=== PATIENT | female | born 1945 | race Caucasian/White ===

== ENCOUNTER → 2017-06-03 | Outpatient (CLI) | payer MEDICARE ==
[~2017-06-03] MED LIST: HYDR12.570 PO
--- NOTE | 2017-06-03 14:54 | Diagnostic Imaging Report ---
INDICATION: Bronchitis for 2 weeks. Productive cough with shortness of breath. COMPARISON: 09/21/2014. FINDINGS: PA and lateral views of the chest show the lungs to be well-aerated. There are no infiltrates. There are no masses. The heart is not enlarged. There is no hilar adenopathy. No pneumothorax or pleural effusions. No bony abnormalities. IMPRESSION: Normal PA and lateral chest. Dictated by: Dictated on workstation # [id number]
== END ==
LOC: RAD 14:31
PROVIDERS: ATTEND Family Medicine
DX: J40 Bronchitis, not specified as acute or chronic (principal)
CPT/HCPCS: 71020

== ENCOUNTER → 2017-11-11 | Outpatient (CLI) | payer MEDICARE ==
--- NOTE | 2017-11-11 14:42 | Diagnostic Imaging Report ---
CLINICAL INDICATION: Patient with sinus infection. No surgeries or history of cancer. EXAM: Axial maxillofacial CT scan performed without IV contrast with coronal reformations. COMPARISON: None. FINDINGS: PARANASAL SINUSES: FRONTAL: Unremarkable. ETHMOID: Unremarkable. MAXILLARY: There is mild mucosal thickening involving right maxillary sinus. SPHENOID: There is minimal mucosal thickening involving the sphenoid sinus. OTHER PARANASAL SINUS FINDINGS: None. NASAL SEPTUM: There is 4 mm leftward nasal septal deviation. VISUALIZED TEMPORAL BONE STRUCTURES: Unremarkable. BONY STRUCTURES: Unremarkable. EXTRACRANIAL SOFT TISSUE/ ORBITS: Unremarkable. IMPRESSION: 1: There is mild paranasal sinus disease involving right maxillary sinus and sphenoid sinus. 2: There is mild leftward nasal septal deviation. Dictated by: Dictated on workstation # [id number]
== END ==
LOC: RAD 14:18
PROVIDERS: ATTEND Nurse Practitioner Family
DX: J32.0 Chronic maxillary sinusitis (principal); J32.3 Chronic sphenoidal sinusitis; J32.8 Other chronic sinusitis; J34.2 Deviated nasal septum
CPT/HCPCS: 70486

== ENCOUNTER → 2017-12-27 | Outpatient (CLI) | payer MEDICARE ==
--- NOTE | 2017-12-27 08:58 | Diagnostic Imaging Report ---
PROCEDURE: MR imaging of the brain without contrast. TECHNIQUE: Multiplanar, multisequence MR imaging of the brain was performed without contrast. DATE: December 27, 2017. COMPARISON: None. HISTORY: 72-year-old female, headaches and neck pain since July 2017. FINDINGS: There is no restricted diffusion. There are no areas of abnormal intracranial susceptibility. The ventricles and CSF spaces are normal in size and configuration for patient age. There is no abnormal extra axial fluid collection. There is no acute intracranial hemorrhage. There is no mass effect or midline shift. There is preservation of normal intracranial flow voids. There are T2 and FLAIR hyperintense foci of signal in the bilateral periventricular white matter which most likely reflect mild changes of chronic small vessel ischemic disease. There is normal aeration of the visualized paranasal sinuses and mastoid air cells. IMPRESSION: 1. No identified acute intracranial abnormality. 2. Mild changes of chronic small vessel ischemic disease. Dictated by: Dictated on workstation # [id number]
--- NOTE | 2017-12-27 09:12 | Diagnostic Imaging Report ---
CLINICAL INDICATION: Patient has been headaches and neck pain since July of 2017. No known injury. EXAM: MRI of the cervical spine performed without IV contrast. Sequences include sagittal T1, sagittal T2, sagittal T2 fat-sat, and axial T2. COMPARISON: None. FINDINGS: There is motion artifact which limits portions of the cervical spine. Cervical spine has normal alignment with no fracture or dislocation. There is normal craniocervical and anterior atlanto-odontoid alignment. Cervical spinal cord has normal anatomic appearance with no abnormal cord signal. Limited visualization of the posterior fossa is unremarkable. There is no paraspinal soft tissue abnormality. There is a 13 mm nodule or multinodular area in the right thyroid gland. There is a smaller nodular area in the left thyroid gland. There is mild prominence of the intra-glandular and visualized extra-glandular bilateral submandibular gland ducts which is nonspecific. There are anterior disc spurs seen involving the mid to lower cervical spine region. C1-C2: Unremarkable. C2-C3: Unremarkable. C3-C4: Unremarkable. C4-C5: There is a minimal sized posterior disc bulge. There is no significant central spinal canal or neural foramen narrowing. C5-C6: There is a diffuse disc bulge with moderate loss of intervertebral disc height and mild facet arthropathy. There is mild central canal narrowing. There is no significant neural foramen narrowing. C6-C7: There is a diffuse disc bulge moderate loss of vertebral disc height. There is zipt-ry-nldkqebm left neural foramen narrowing and mild central canal narrowing. There is no significant right neural foramen narrowing. C7-T1: Unremarkable. IMPRESSION: 1: There is sndr-uz-dnhemgcr cervical spine degenerative disc disease which is most pronounced at the C5-C6 and C6-C7 levels due to diffuse disc bulges. There is no major central canal narrowing. There is gxmn-lc-pageqffw left C6-C7 neural foramen narrowing. 2: Multinodular thyroid gland. Thyroid ultrasound is suggested for further evaluation. 3: Nonspecific prominence of the intraglandular and extraglandular bilateral submandibular gland ducts. Dictated by: Dictated on workstation # [id number]
== END ==
LOC: RAD 07:27
PROVIDERS: ATTEND Psychiatry & Neurology Neurology
DX: M48.02 Spinal stenosis, cervical region (principal); M99.71 Connective tissue and disc stenosis of intervertebral foramina of cervical region; M50.322 Other cervical disc degeneration at C5-C6 level; M50.222 Other cervical disc displacement at C5-C6 level; I67.82 Cerebral ischemia; E04.2 Nontoxic multinodular goiter
CPT/HCPCS: 70551; 72141

== ENCOUNTER → 2017-12-27 | Outpatient (CLI) | payer MEDICARE ==
--- NOTE | 2017-12-27 09:19 | Diagnostic Imaging Report ---
INDICATION: Shortness of breath. FINDINGS: The lungs are clear. The heart and vessels are normal. No effusion or pneumothorax. IMPRESSION: No acute appearing abnormality. Dictated by: Dictated on workstation # [id number]
== END ==
LOC: RAD 07:30
PROVIDERS: ATTEND Family Medicine
DX: D86.9 Sarcoidosis, unspecified (principal)
CPT/HCPCS: 71046

== ENCOUNTER → 2017-12-30 | Outpatient (CLI) | payer MEDICARE ==
--- NOTE | 2017-12-30 09:35 | Diagnostic Imaging Report ---
PROCEDURE: US Thyroid. TECHNIQUE: Multiple real-time grayscale images were obtained of the thyroid in various projections. INDICATION: Enlarged lymph nodes and bilateral neck pain. Patient also had thyroid nodules noted on recent MRI of the cervical spine. FINDINGS: Right lobe of the thyroid measures 5.6 x 1.6 x 1.9 cm and the left lobe measures 5.2 x 1.8 x 1.5 cm. Numerous bilateral thyroid nodules are present. Several nodules appear to be cystic and likely colloid cysts. These all are less than 1 cm in size. Largest nodule is on the right and appears to be solid in the lower pole. This measures 11 mm x 7 mm x 11 mm. No dominant thyroid mass is seen. Areas of pain were evaluated in both necks. No solid or cystic masses are seen. IMPRESSION: Bilateral thyroid nodules. No dominant thyroid nodules detected. Followup in 6 months could be performed to confirm stability. Study is otherwise unremarkable. Dictated by: Dictated on workstation # [id number]
== END ==
LOC: RAD 08:12
PROVIDERS: ATTEND Nurse Practitioner Family
DX: E04.2 Nontoxic multinodular goiter (principal); R59.0 Localized enlarged lymph nodes; M54.5 Low back pain
CPT/HCPCS: 76536

== ENCOUNTER → 2018-09-14 | Outpatient (CLI) | payer MEDICARE ==
--- NOTE | 2018-09-14 10:20 | Diagnostic Imaging Report ---
PROCEDURE: US Hepatic (Liver). TECHNIQUE: Multiple real-time grayscale images were obtained over the right upper quadrant in various projections. INDICATION: Elevated liver enzymes. FINDINGS: Liver is normal in size at 16.4 cm. No discrete liver mass is identified. The portal vein is patent and shows normal direction of flow. Gallbladder is surgically absent. No biliary ductal dilatation is seen. Visualized pancreas is unremarkable. Right kidney is somewhat small at 8 cm x 4.1 cm. No calculi or hydronephrosis is seen. There is no ascites. IMPRESSION: Essentially unremarkable hepatic ultrasound. Dictated by: Dictated on workstation # [id number]
--- NOTE | 2018-09-14 10:51 | Diagnostic Imaging Report ---
PROCEDURE: US Thyroid. TECHNIQUE: Multiple real-time grayscale images were obtained of the thyroid in various projections. INDICATION: Thyroid nodules. COMPARISON: Correlation is made with prior thyroid ultrasound from 12/30/2017. FINDINGS: Right lobe of the thyroid measures 5.0 x 1.9 x 1.5 cm and the left lobe measures 5.4 x 1.6 x 1.5 cm. Bilateral thyroid nodules are again noted. The largest nodule on the left is mixed solid and cystic nodule in the lower pole measuring approximately 9 mm x 4 mm x 6 mm. This is similar to prior exam. Largest nodule on the right is in the lower pole measuring 1.3 x 0.7 x 1.1 cm, minimally larger when compared with prior study of 1.1 x 0.7 x 1.1 cm. No microcalcifications are seen. IMPRESSION: Bilateral thyroid nodules. Solid nodule in the lower pole of the right lobe is minimally larger when compared with study from 12/30/2017. Continued close followup is recommended to confirm stability. Repeat study in six months is recommended. Dictated by: Dictated on workstation # [id number]
== END ==
LOC: RAD 08:00
PROVIDERS: ATTEND Family Medicine
DX: E04.2 Nontoxic multinodular goiter (principal); R94.5 Abnormal results of liver function studies; Z90.49 Acquired absence of other specified parts of digestive tract
CPT/HCPCS: 76536; 76705

== ENCOUNTER → 2019-02-26 | Outpatient (CLI) | payer MEDICARE ==
--- NOTE | 2019-02-26 09:42 | Diagnostic Imaging Report ---
CLINICAL INDICATION: Patient with thyroid nodules. COMPARISONS: Ultrasound of the thyroid gland dated 09/14/2018. FINDINGS: THYROID NODULES: There is a 1.4 cm x 1.1 cm x 0.6 cm hypoechoic nodule medial mid to lower portion right thyroid gland which is not significantly changed in size. There is central Doppler flow associated with this nodule. There is a 3 mm x 3 mm x 2 mm hypoechoic nodule involving the mid to upper portion of the right thyroid gland which is not significantly changed. There is a 4 mm x 3 mm x 2 mm hypoechoic nodule involving the upper portion of the left thyroid gland which is not seen on the prior study. There is a 6 mm x 4 mm x 3 mm heterogeneous iso-/hypoechoic nodule that is septated and located in the inferior pole of the left thyroid gland. The previously seen nodule in this area measured 0.9 cm x 0.4 cm x 0.6 cm and appear more as a solid and cystic complex nodule. It is suspected that this nodule has decreased in size. THYROID GLAND: Besides the thyroid nodules, the thyroid gland has normal size, shape and echogenicity. The right lobe measures 5.0 cm x 1.6 cm x 1.7 cm and the left lobe measures 4.9 cm x 1.4 cm x 1.2 cm in their three dimensions. ISTHMUS: The isthmus is unremarkable and measures 4 mm in thickness. IMPRESSION: 1: There is a 4 mm hypoechoic nodule involving the upper portion of thyroid gland which is not seen on the prior study. 2: Interval decreased size of the now 6 mm heterogeneous nodule involving the inferior pole of the left thyroid gland. This nodule previously measured 9 mm in greatest dimension 3: The right thyroid gland nodule is not significantly changed in size. Dictated by: Dictated on workstation # [id number]
== END ==
LOC: RAD 07:49
PROVIDERS: ATTEND Nurse Practitioner Family
DX: E04.2 Nontoxic multinodular goiter (principal)
CPT/HCPCS: 76536

== ENCOUNTER 2019-04-11 15:59 | Outpatient (CLI) | payer MEDICARE ==
[~2019-04-11] VITALS: Ht 162.6 cm; Wt 70.5 kg
[2019-04-11] MEDS ORDERED: HYDR12.56 PO (16:01)
[2019-04-11] MEDS ORDERED: TELM80TA8 PO (16:01)
== END 2019-04-11 16:06 | disposition home or self-care (01) ==
LOC: PREOP 15:59
PROVIDERS: ATTEND Specialist
DX: Z01.818 Encounter for other preprocedural examination (principal)

== ENCOUNTER 2019-05-04 06:51 | Day surgery (SDC) | payer MEDICARE ==
[~2019-05-04] VITALS: Ht 162.6 cm; Wt 70.5 kg
[~2019-05-04 06:51] MED LIST changes: +HYDR12.56 PO; +TELM80TA8 PO; +acetaZOLAMIDE ER 500 MG CAP (DIAMOX SEQUELS) PO ONE
[2019-05-04 06:55] VITALS: BP 143/71
[2019-05-04] MEDS ORDERED: TIMOLOL MALEATE 0.5% 5 ML (TIMOPTIC) BTL OU PRN (07:00)
[2019-05-04] MEDS ORDERED: POVIDONE (BETADINE) OPHTH SOLN 5% 30 ML OP ONE (07:00)
[2019-05-04] MEDS ORDERED: MOXIFLOXACIN OPHTH SOLN 5 MG/ML 0.3 ML SYRINGE OP ONE (07:00)
[2019-05-04] MEDS ORDERED: LIDOCAINE PF 1% 2 ML AMP IR PRN (07:00)
[2019-05-04] MEDS: TETRACAINE 0.5% OPHTH SOLN 4 ML BTL (SINGLE DOSE ONLY) OU PRN ×4 (07:08→07:37)
[2019-05-04] MEDS: CYCLOPENTOLATE 1% (CYCLOGYL) 2 ML DROPS OP SCH ×3 (07:21→07:37)
[2019-05-04] MEDS: PHENYLEPHRINE 10% OPHTH (NEO-SYN) 5 ML BTL OU SCH ×3 (07:21→07:37)
--- NOTE | 2019-05-04 08:26 | Ophthalmologist Pre-Op Note ---
Pre-Operative Progress Note H&P Reviewed The H&P was reviewed, patient examined and no changes noted. Date H&P Reviewed: May 04, 2019 Time H&P Reviewed: 08:26 Pre-Op Dx Cataract, Left Eye RAJENDRA JIMENEZ MD May 04, 2019 08:26 POS
[2019-05-04] MEDS ORDERED: MIDAZOLAM 2 MG/2 ML (VERSED) VIAL ONE (08:32)
--- NOTE | 2019-05-04 08:44 | Ophthalmology Operative Report ---
Cataract removal/placement IOL PREOPERATIVE DIAGNOSIS: Cataract Left Eye POSTOPERATIVE DIAGNOSIS: Cataract Left Eye PROCEDURE: Cataract removal and placement of posterior chamber implant, left eye SURGEON: John Jimenez ANESTHESIA: Topical with sedation COMPLICATIONS: None ESTIMATED BLOOD LOSS: Minimal DESCRIPTION OF PROCEDURE: After proper informed consent was obtained, the patient, a 73 female, was taken to the Operating Room and the left eye was anesthetized with tetracaine. The left eye was then prepped and draped in the usual manner. A wire lid speculum was placed. A paracentesis was made at the left hand position. Preservative free lidocaine was injected into the anterior chamber followed by viscoelastic. A clear corneal incision was made in the temporal position. A capsulorrhexis was preformed and the central nuclear and cortical material were removed. The posterior capsule was polished and an Milan 21.5 AU00T0 was placed into the capsular bag. The residual viscoelastic was aspirated and balanced saline solution was injected into the anterior chamber. Moxifloxacin was injected into the anterior chamber. The wound was checked and found to be water tight. The patient tolerated the procedure well without complications. JOHN JIMENEZ MD May 04, 2019 08:44 POS
[2019-05-04 08:55] VITALS: BP 133/73
--- NOTE | 2019-05-04 13:18 | Anesthesia-General Post-Op ---
MAC Patient Condition Mental Status/LOC: Same as Preop Cardiovascular: Satisfactory Nausea/Vomiting: Absent Respiratory: Satisfactory Pain: Controlled Complications: Absent Post Op Complications Complications None Follow Up Care/Instructions Patient Instructions None needed. Anesthesiology Discharge Order Discharge Order Patient is doing well, no complaints, stable vital signs, no apparent adverse anesthesia problems. No complications reported per nursing. RENÉE ORNELAS CRNA May 04, 2019 13:18 POS
== END 2019-05-04 08:55 ==
LOC: SDC 06:51
PROVIDERS: ATTEND Specialist
DX: H25.12 Age-related nuclear cataract, left eye (principal); E78.00 Pure hypercholesterolemia, unspecified; I10 Essential (primary) hypertension; Z88.0 Allergy status to penicillin; Z90.710 Acquired absence of both cervix and uterus; Z90.49 Acquired absence of other specified parts of digestive tract; Z79.899 Other long term (current) drug therapy; Z83.3 Family history of diabetes mellitus; Z83.518 Family history of other specified eye disorder

== ENCOUNTER 2019-05-23 05:38 | Outpatient (CLI) | payer MEDICARE ==
[~2019-05-23 05:38] MED LIST changes: -acetaZOLAMIDE ER 500 MG CAP (DIAMOX SEQUELS) PO ONE
== END 2019-05-23 13:13 | disposition home or self-care (01) ==
LOC: PREOP 05:38
PROVIDERS: ATTEND Specialist
DX: Z01.818 Encounter for other preprocedural examination (principal)

== ENCOUNTER 2019-05-25 07:29 | Day surgery (SDC) | payer MEDICARE ==
[~2019-05-25] VITALS: Ht 163 cm; Wt 70.5 kg
[2019-05-25 07:45] VITALS: BP 149/75
[2019-05-25] MEDS ORDERED: MOXIFLOXACIN OPHTH SOLN 5 MG/ML 0.3 ML SYRINGE OP ONE (08:00)
[2019-05-25] MEDS ORDERED: POVIDONE (BETADINE) OPHTH SOLN 5% 30 ML OP ONE (08:00)
[2019-05-25] MEDS ORDERED: LIDOCAINE PF 1% 2 ML AMP IR PRN (08:00)
[2019-05-25] MEDS ORDERED: TIMOLOL MALEATE 0.5% 5 ML (TIMOPTIC) BTL OU PRN (08:00)
[2019-05-25] MEDS: TETRACAINE 0.5% OPHTH SOLN 4 ML BTL (SINGLE DOSE ONLY) OU PRN ×4 (08:01→08:32)
[2019-05-25] MEDS: CYCLOPENTOLATE 1% (CYCLOGYL) 2 ML DROPS OP SCH ×3 (08:14→08:32)
[2019-05-25] MEDS: PHENYLEPHRINE 10% OPHTH (NEO-SYN) 5 ML BTL OU SCH ×3 (08:14→08:32)
--- NOTE | 2019-05-25 08:39 | Ophthalmologist Pre-Op Note ---
Pre-Operative Progress Note H&P Reviewed The H&P was reviewed, patient examined and no changes noted. Date H&P Reviewed: May 25, 2019 Time H&P Reviewed: 08:39 Pre-Op Dx Cataract, Right Eye RAJENDRA JIMENEZ MD May 25, 2019 08:39 POS
[2019-05-25] MEDS ORDERED: MIDAZOLAM 2 MG/2 ML (VERSED) VIAL ONE (08:41)
--- NOTE | 2019-05-25 09:01 | Ophthalmology Operative Report ---
Cataract removal/placement IOL PREOPERATIVE DIAGNOSIS: Cataract Right Eye POSTOPERATIVE DIAGNOSIS: Cataract Right Eye PROCEDURE: Cataract removal and placement of posterior chamber implant, right eye SURGEON: John Jimenez ANESTHESIA: Topical with sedation COMPLICATIONS: None ESTIMATED BLOOD LOSS: Minimal DESCRIPTION OF PROCEDURE: After proper informed consent was obtained, the patient, a 73 female, was taken to the Operating Room and the right eye was anesthetized with tetracaine. The right eye was then prepped and draped in the usual manner. A wire lid speculum was placed. A paracentesis was made at the left hand position. Preservative free lidocaine was injected into the anterior chamber followed by viscoelastic. A clear corneal incision was made in the temporal position. A capsulorrhexis was preformed and the central nuclear and cortical material were removed. The posterior capsule was polished and Milan 22.0 AU00T0 IOL was placed into the capsular bag. The residual viscoelastic was aspirated and balanced saline solution was injected into the anterior chamber. Moxifloxacin was injected into the anterior chamber. The wound was checked and found to be water tight. The patient tolerated the procedure well without complications. JOHN JIMENEZ MD May 25, 2019 09:01 POS
[2019-05-25 09:10] VITALS: BP 140/77
[2019-05-25] MEDS ORDERED: acetaZOLAMIDE ER 500 MG CAP (DIAMOX SEQUELS) PO ONE (10:00)
--- NOTE | 2019-05-25 11:46 | Anesthesia-General Post-Op ---
MAC Patient Condition Mental Status/LOC: Same as Preop Cardiovascular: Satisfactory Nausea/Vomiting: Absent Respiratory: Satisfactory Pain: Controlled Complications: Absent Post Op Complications Complications None Follow Up Care/Instructions Patient Instructions None needed. Anesthesiology Discharge Order Discharge Order Patient is doing well, no complaints, stable vital signs, no apparent adverse anesthesia problems. No complications reported per nursing. MICHAEL PACHECO CRNA May 25, 2019 11:46 POS
--- OUTSIDE RECORDS SUMMARY | 2019-06-20 08:53 | XMS REPORT | Encounter Summary ---
Author Author [facility] Organization [facility] Address Unknown Phone Unavailable Care Team Providers Care Strategic Account Director Name Role Phone Tatyana Grimm PCP Encounter Details Care Team Description Date Type Department Encounter for consultation 07/04/[address] [facility] e Appointment Location Social History Date Tobacco Use Types Packs/Day Years Used Never Assessed Sex Assigned at Date Recorded Not on file Industry Job Start Date Occupation Not on file Not on file Not on file Travel End Travel History Travel Start No recent travel history available. documented as of this encounter Plan of Treatment Not on filedocumented as of this encounter Procedures Comments Procedure Name Priority Date/Time Associated Diag rosalio PARHAM OUTSIDE IMAGES FOR Routine 07/04/2017 Encounte r for PACS 10:57 AM AWNINGS MECHANIC consultation documented in this encounter Results * PRASAD Outside images for PACS (07/04/2017 10:57 AM AWNINGS MECHANIC) Specimen Narrative Performed At This result has an attachment that is n ot available. Performing Organization Address [facility]ul [facility] documented in this encounter Visit Diagnoses Diagnosis Encounter for consultation documented in this encounter
--- OUTSIDE RECORDS SUMMARY | 2019-06-20 08:53 | XMS REPORT | Encounter Summary ---
Author Author [facility] Organization [facility] Address Unknown Phone Unavailable Care Team Providers Care Supervisor [employer]ing Name Role Phone Tatyana Grimm PCP Encounter Details Care Team Description Date Type Department Encounter for consultation 07/01/[address] [facility] Virtual [facility] e Appointment Location Social History Date Tobacco [...] Comments Procedure Name Priority Date/Time Associated Diag nosis US OUTSIDE IMAGES FOR Routine 07/01/2017 Encounte r for PACS 10:15 AM SHIP BOSS consultation documented in this encounter Results * US Outside images for PACS (07/01/2017 10:15 AM SHIP BOSS) Specimen Narrative Performed At This result has an attachment that is n ot available. Performing Organization Address [facility] documented in this encounter Visit Diagnoses Diagnosis Encounter for consultation documented in this encounter
--- OUTSIDE RECORDS SUMMARY | 2019-06-20 08:53 | XMS REPORT | Encounter Summary ---
Author Author [facility] Organization [facility] Address Unknown Phone Unavailable Care Team Providers Care Rehab Assistant Name Role Phone Tatyana Grimm PCP Reason for Visit * MRI/CAT/PET Scan (Routine) Referred By Contact Referred To Contact Status Reason Specialty Diagnoses / Procedures No, Ordering D, DO [facility] [address] [place] [id number] Closed Cardiology Diagnoses High cholesterol Screening for cardiovascular condition P rocedures CV CT Cardioscan Encounter Details Care Team Description Date Type Department High cholesterol; Screening for cardiovascular condition 02/15/2018 Imaging [facility] o[facility] Appointment [address] [facility] [address] [place] [address] Social History Date Tobacco Use Types Packs/Day Years Used Never Assessed Sex Assigned at Date Recorded Not on file Industry Job Start Date Occupation Not on file Not on file Not on file Travel End Travel History Travel Start No recent travel history available. documented as of this encounter Progress Notes * Lexus López - 02/15/2018 1:45 PM CDT The final cardioscan report was routed to the patient's PCP, Dr. Grimm. Lexus López Cardioscan Patient Educator * Robbie Ding - 02/15/2018 1:45 PM CDT Patient was counseled today regarding their Cardioscan results. Patient had NO c alcification with a score of 0, putting the patient at a LOW risk for subsequent cardiac events compared to the average person of similar age and gender. Risk f actor modification was discussed. Repeat in 5 years. Robbie Ding Cardioscan patient educator documented in this encounter Plan of Treatment Not on filedocumented as of this encounter Procedures Comments Procedure Name Priority Date/Time Associated Diag nosis CV CT CARDIOSCAN Routine 02/15/2018 High choleste rol 1:55 PM CDT Screening for cardiovascular condition documented in this encounter Results * CV CT Cardioscan (02/15/2018 1:55 PM CDT) Calcium Score 0.0 [facility] Specimen Narrative Performed At [facility] NAME: TIESHA BRASWELL : [id number] GENDER: f MRN: CHARBEL NUM: [id number] TEST: Coronary Calcium Score TEST DATE: TEST LOCATION: [place] INPATIENT: INDICATION FOR TEST: Hypertension, Hy perlipidemia SYMPTOMS: None PROTOCOL: High-resolution, ECG-synchr onized Computed Tomography (CT) of the heart and coronary arteries was perform ed using a Multi-Detector Computed Tomography (MDCT). Each slice acquire d was 3 mm thick using a 3 mm slice to slice step. The average heart rate of the patient was 80 bpm an d varied over a range of 0 bpm. There were no image artifacts.. REPORT: Based on the size and density of the calcium deposits in each artery, a calcium score was computed using Perficient volumetric cardiac scoring software. Such deposits are markers for underly ing coronary atherosclerosis. The coronary artery calcium score enables a person to emmy re his or her level of coronary calcification to levels found in health y individuals of the same age and gender. The score is an indicator of the like lihood for significant coronary artery obstruction and the risk of a subsequent cardiac event. Coronary Artery: Left Main, # of Lesion s: 0, Volume Score: 0, Mass Score: 0, Agatston Score: 0 Coronary Artery: LAD, # of Lesions: 0, Volume Score: 0, Mass Score: 0, Agatston Score: 0 Coronary Artery: LCX, # of Lesions: 0, Volume Score: 0, Mass Score: 0, Agatston Score: 0 Coronary Artery: RCA, # of Lesions: 0, Volume Score: 0, Mass Score: 0, Agatston Score: 0 Coronary Artery: Total, # of Lesions: 0 , Volume Score: 0, Mass Score: 0, Agatston Score: 0. The Agatston score indicates No Identif iable Calcification. The total Agatston score of 0 bridget PINO BRASWELL within the Low Risk Category for females, of similar age. (Note: the d atabase only contains persons between the ages of 30 and 79.) OTHER COMMENTS: This is a limited CT scan of the chest for evaluation of coronary artery calcification only and is not intended for any other purpose. Please refer to the attached recommen dations provided to you at the time of your Cardioscan study for further information. Trey Escalante MD [address] [address], [address] [place] [address] PROVIDER APPROVAL DATETIME: 2018-01-20 0 13:43:29.0 Procedure Note Interface, External Ris In - 02/16/2018 2:14 PM CDT NAME: TIESHA BRASWELL : [id number] GENDER: f MRN: CHARBEL NUM: [id number] TEST: Coronary Calcium Score TEST DATE: TEST LOCATION: [place] INPATIENT: INDICATION FOR TEST: Hypertension, Hyperlipidemia SYMPTOMS: None PROTOCOL: High-resolution, ECG-synchronized Computed Tomography (CT) of the heart and coronary arteries was performed using a Multi-Detector Computed Tomography (MDCT). Each slice acquired was 3 mm thick using a 3 mm slice to slice step. The average heart rate of the patient was 80 bpm and varied over a range of 0 bpm. There were no image artifacts.. REPORT: Based on the size and density of the calcium deposits in each artery, a calcium score was computed using Siemens volumetric cardiac scoring software. Such deposits are markers for underlying coronary atherosclerosis. The coronary artery calcium score enables a person to compare his or her level of coronary calcification to levels found in healthy individuals of the same age and gender. The score is an indicator of the likelihood for significant coronary artery obstruction and the risk of a subsequent cardiac event. Coronary Artery: Left Main, # of Lesions: 0, Volume Score: 0, Mass Score: 0, Agatston Score: 0 Coronary Artery: LAD, # of Lesions: 0, Volume Score: 0, Mass Score: 0, Agatston Score: 0 Coronary Artery: LCX, # of Lesions: 0, Volume Score: 0, Mass Score: 0, Agatston Score: 0 Coronary Artery: RCA, # of Lesions: 0, Volume Score: 0, Mass Score: 0, Agatston Score: 0 Coronary Artery: Total, # of Lesions: 0, Volume Score: 0, Mass Score: 0, Agatston Score: 0. The Agatston score indicates No Identifiable Calcification. The total Agatston score of 0 ranks TIESHA BRASWELL within the Low Risk Category for females, of similar age. (Note: the database only contains persons between the ages of 30 and 79.) OTHER COMMENTS: This is a limited CT scan of the chest for evaluation of coronary artery calcification only and is not intended for any other purpose. Please refer to the attached recommendations provided to you at the time of your Cardioscan study for further information. Trey Escalante MD [address], [address] [place] [address] PROVIDER APPROVAL DATETIME: 2018-02-16 13:43:29.0 Performing Organization Address City/State/Zipcode Ph one Number [facility] documented in this encounter Visit Diagnoses Diagnosis High cholesterol Pure hypercholesterolemia Screening for cardiovascular condition Screening for other and unspecified car diovascular conditions documented in this encounter
--- OUTSIDE RECORDS SUMMARY | 2019-06-20 08:53 | XMS REPORT | Encounter Summary ---
Author Author [facility] Organization [facility] Address Unknown Phone Unavailable Care Team Providers Care Auto Glass Technician Name Role Phone Tatyana Grimm PCP Encounter Details Care Team Description Date Type Department Encounter for consultation 07/04/2017 Imaging [facility] Virtual [facility] e Appointment Location Social History Date [...] 07/04/2017 Encounte r for PACS 10:57 AM WEB APPLICATIONS ADMINISTRATOR consultation documented in this encounter Results * PRASAD Outside images for PACS (07/04/2017 10:57 AM WEB APPLICATIONS ADMINISTRATOR) Specimen Narrative Performed At This result has an attachment that is n ot available. Performing Organization Address [facility] Mehul [facility] documented in this encounter Visit Diagnoses Diagnosis Encounter for consultation documented in this encounter
--- OUTSIDE RECORDS SUMMARY | 2019-06-20 08:53 | XMS REPORT | Encounter Summary ---
Author Author [facility] Organization [facility] Address Unknown Phone Unavailable Care Team Providers Care Web Content Editor Name Role Phone Tatyana Grimm PCP Encounter Details Care Team Description Date Type Department Encounter for consultation 07/04/[address] [facility] Appointment Location Social History Date [...] FOR Routine 07/04/2017 Encounte r for PACS 10:55 AM BUSINESS ACCOUNT EXECUTIVE consultation documented in this encounter Results * PRASAD Outside images for PACS (07/04/2017 10:55 AM BUSINESS ACCOUNT EXECUTIVE) Specimen Narrative Performed At This result has an attachment that is n ot available. Performing Organization Address [facility] Mehul [facility] documented in this encounter Visit Diagnoses Diagnosis Encounter for consultation documented in this encounter
--- OUTSIDE RECORDS SUMMARY | 2019-06-20 08:53 | XMS REPORT | Encounter Summary ---
Author Author [facility] Address Unknown Phone Unavailable Care Team Providers Care Frame Stylist Name Role Phone Tatyana Grimm PCP Reason for Referral * Diagnostic Imaging (Routine) Referred By Contact Referred To Contact Status Reason Specialty Diagnoses / Procedures Tatyana Grimm MD [address] [place] [id number] Closed Diagnoses Mastodynia P rocedures MA Mammogram diagnostic w CAD kiera bilat MA Mammogram diagnostic bilat Reason for Visit * Diagnostic Imaging (Routine) Referred By Contact Referred To Contact Status Reason Specialty Diagnoses / [place] [address] [place] [id number] Closed Diagnoses Mastodynia P rocedures MA Mammogram diagnostic w CAD kiera bilat MA Mammogram diagnostic bilat Encounter Details Care Team Description Date [place] [address] [place] [id number] Mastodynia 07/07/2017 [facility] Breast [address], [address] [place] [address] Social History Date Tobacco Use Types Packs/Day Years Used Never Assessed Sex Assigned at Date Recorded Not on file Industry Job Start Date Occupation Not on file Not on file Not on file Travel End Travel History Travel Start No recent travel history available. documented as of this encounter Medications at Time of Discharge Start Date End Date Medication Sig Dispensed Refills 06/25/2017 cycloSPORINE (RESTASIS) Administer 1 0 0.05 % ophthalmic Drop in both emulsion eyes daily. 06/30/2015 02/27/2018 ACYCLOVIR ORAL Take 1 0 capsule by mouth. 02/25/2012 02/27/2018 ascorbic acid (VITAMIN C) Take 1 tablet 0 500 mg tablet by mouth 2 (two) times a day. 01/03/2017 02/27/2018 busPIRone (BUSPAR) 5 MG Take 5 mg by 0 tablet mouth daily. 02/25/2012 02/27/2018 co-enzyme Q-10 50 mg Take 1 0 capsule capsule by mouth. 06/30/2015 02/27/2018 fexofenadine (THANH) 60 Take by 0 MG tablet mouth. 02/28/2012 02/27/2018 levalbuterol (XOPENEX Inhale 1 0 HFA) 45 mcg/actuation Inhaler. inhaler 06/30/2015 02/27/2018 lisinopril Take 1 tablet 0 (PRINIVIL,ZESTRIL) 20 MG by mouth. tablet 02/25/2012 02/27/2018 LYSINE ORAL Take 1 0 capsule by mouth. 01/14/2014 02/27/2018 MAGNESIUM CITRATE ORAL Take 2 0 tablets by mouth. 02/28/2012 02/27/2018 omega-3 fatty acids/fish Take 1 0 oil (OMEGA 3 FISH OIL capsule by ORAL) mouth. 02/25/2012 02/27/2018 potassium 99 mg Tab Take 1 tablet 0 by mouth. documented as of this encounter Plan of Treatment Not on filedocumented as of this encounter Procedures Comments Procedure Name Priority Date/Time Associated Diag nosis MA MAMMOGRAM DIAGNOSTIC W Routine 07/07/2017 Mast odynia CAD KIERA BILAT 11:01 AM TRACK LAYING MACHINE OPERATOR documented in this encounter Results * MA Mammogram diagnostic w CAD kiera bilat (07/07/2017 11:01 AM TRACK LAYING MACHINE OPERATOR) Specimen Impressions Performed At [facility] There is no mammographic or sonographic evidence of malignancy at the location of clinical concern. However, negative imaging does not eliminate the need for further clinical evaluation and/or follow up. Continued clinical follow up is recommended as the management of palpable abnormalities should be based on the results of clinical evaluation. The results and recommendation of this exam have been discussed with the patient. Routine mammogram in 1 year is recommen ded. Patient will receive a reminder letter. The results and recommendation of this exam have been discussed with the patient in person. BI-RADS CATEGORY 2: Benign Finding(s) READING SITE: [facility] gunner [place] Electronically Signed: at 12:28:16 PM Your patient will receive the results o f this examination as outlined by the Mammography Quality Standards Act. Tiesha Braswell, [id number] 1945 2 Page 2li Narrative Performed At [facility] Breast Care [address], [address] [place] [address] Patient: Tiesha Braswell Date of : 1945 Referring Physician: Tatyana sidhu Exam Date: 07/07/2017 Exam [id number] Procedure Performed: MA Mammogram diagn ostic w CAD kiera bilat - bilateral , Ultrasound Breast Limited left - left REASON FOR EXAM Patient is 72 years old and is seen for lump felt by patient and focal breast pain in the left breast. The following views were obtained: bi lateral CC; bilateral MLO KIERA; bilateral MLO; bilateral CC KIERA; left XCCL; and left XCCL KIERA. IMAGE COMPARISON Prior imaging studies performed at [facility] on 11/19/2008, 03/03/2010, 03/09/2010, 01/15/2014 and 01/16/2014 w ere reviewed. DIGITAL MAMMOGRAM CAD-analysis was used in the interpreta tion of this study. The breasts are heterogeneously dense, which may obscure small masses. There is a triangle marker placed on th e skin that corresponds to the patient's palpable lump in the posterior upper ou ter quadrant of the left breast. No corresponding mammographic abnormality is seen. Of note, the marker also lies adjacent to a scar marker also present, secondary to previous excision. A post biopsy clip is seen within the lateral right breast. Otherwise, no suspicious masses, architectural distortion, or gr ouped microcalcifications are seen in either breast. ULTRASOUND Targeted ultrasound was subsequently pe rformed of the left breast at the area of clinical concern at 2 o'clock 8 cm from the nipple. Transverse and longitudinal images are obtained by the technologist . No suspicious solid or cystic mass is seen. A mound of fibroglandular tissu e is seen, which may correspond with the area of palpable concern. Procedure Note Interface, Rad Results In - 07/07/2017 12:31 PM [facility] [address], [address] [place] [address] Patient: Tiesha Braswell Date of : 1945 Referring Physician: Tatyana Grimm Exam Date: 07/07/2017 Exam [id number] Procedure Performed: MA Mammogram diagnostic w CAD kiera bilat - bilateral , Ultrasound Breast Limited left - left REASON FOR EXAM Patient is 72 years old and is seen for lump felt by patient and focal breast pain in the left breast. The following views were obtained: bilateral CC; bilateral MLO KIERA; bilateral MLO; bilateral CC KIERA; left XCCL; and left XCCL KIERA. IMAGE COMPARISON Prior imaging studies performed at [facility] on 11/19/2008, 03/03/2010, 03/09/2010, 01/15/2014 and 01/16/2014 we re reviewed. DIGITAL MAMMOGRAM CAD-analysis was used in the interpretation of this study. The breasts are heterogeneously dense, which may obscure small masses. There is a triangle marker placed on the skin that corresponds to the patient's palpable lump in the posterior upper outer quadrant of the left breast. No corresponding mammographic abnormality is seen. Of note, the marker also lies adjacent to a scar marker also present, secondary to previous excision. A post biopsy clip is seen within the lateral right breast. Otherwise, no suspicious masses, architectural distortion, or grouped microcalcifications are seen in either breast. ULTRASOUND Targeted ultrasound was subsequently performed of the left breast at the area of clinical concern at 2 o'clock 8 cm from the nipple. Transverse and longitudinal images are obtained by the technologist. No suspicious solid or cystic mass is seen. A mound of fibroglandular tissue is seen, which may correspond with the area of palpable concern. IMPRESSION IMPRESSION There is no mammographic or sonographic evidence of malignancy at the location of clinical concern. However, negative imaging does not eliminate the need for further clinical evaluation and/or follow up. Continued clinical follow up is recommended as the management of palpable abnormalities should be based on the results of clinical evaluation. The results and recommendation of this exam have been discussed with the patient. Routine mammogram in 1 year is recommended. Patient will receive a reminder letter. The results and recommendation of this exam have been discussed with the patient in person. BI-RADS CATEGORY 2: Benign Finding(s) READING SITE: [facility] Etta [place] Electronically Signed: 07/07/2017 at 12:28:16 PM Your patient will receive the results of this examination as outlined by the Mammography Quality Standards Act. Tiesha Braswell, [id number] 1945 2 Page 2li Performing Organization Address City/State/Zipcode Ph one Number [facility] documented in this encounter Visit Diagnoses Diagnosis Mastodynia documented in this encounter
--- OUTSIDE RECORDS SUMMARY | 2019-06-20 08:53 | XMS REPORT | Encounter Summary ---
Author Author [facility] Organization [facility] Address Unknown Phone Unavailable Care Team Providers Care Curriculum Consultant Name Role Phone Melissa Hodges PCP Reason for Referral * MRI/CAT/PET Scan (Routine) Referred By Contact Referred To Contact Status Reason Specialty Diagnoses / Procedures No, Ordering D, DO [facility] [address] [place] [address] Closed Cardiology Diagnoses High cholesterol Screening for cardiovascular condition P rocedures CV CT Cardioscan Encounter Details Care Team Description Date Type Department No, Ordering D, DO [phone] High cholesterol (Primary Dx); Screening for [facility] condition [facility] [address] [place] [address] Social History Date Tobacco Use Types Packs/Day Years Used Never Assessed Sex Assigned at Date Recorded Not on file Industry Job Start Date Occupation Not on file Not on file Not on file Travel End Travel History Travel Start No recent travel history available. documented as of this encounter Plan of Treatment Not on filedocumented as of this encounter Results * CV CT Cardioscan (02/15/2018 1:55 PM CDT) Calcium Score 0.0 [facility] Specimen Narrative Performed At [facility] NAME: TIESHA BRASWELL : [id number] GENDER: f MRN: ACCOUNT NUM: [id number] TEST: Coronary Calcium Score TEST DATE: TEST LOCATION: [place] INPATIENT: INDICATION FOR TEST: Hypertension, Hy perlipidemia [...] artery, a calcium score was computed using [employer] volumetric cardiac scoring software. Such deposits are [...] The total Agatston score of 0 ranks KASEY IS BRASWELL within the Low Risk Category for [...] study for further information. Trey Escalante MD [address], [address] [place] [address] PROVIDER APPROVAL DATETIME: 2018-01-20 0 13:43:29.0 Procedure Note Interface, External Ris In - 02/16/2018 2:14 PM CDT NAME: TIESHA BRASWELL : [id number] GENDER: f MRN: CHARBEL NUM: [id number] TEST: Coronary Calcium Score TEST DATE: TEST LOCATION: [place] INPATIENT: INDICATION FOR TEST: Hypertension, Hyperlipidemia SYMPTOMS: [...] Escalante MD [address], [address] [place] [address] PROVIDER APPROVAL DATETIME: 2018-02-16 13:43:29.0 Performing Organization Address City/State/Zipcode Ph one Number [facility] documented in this encounter Visit Diagnoses Diagnosis High cholesterol Pure hypercholesterolemia Screening for cardiovascular condition Screening for other and unspecified car diovascular conditions documented in this encounter
--- OUTSIDE RECORDS SUMMARY | 2019-06-20 08:53 | XMS REPORT | Encounter Summary ---
Author Author [facility] Organization [facility] Address Unknown Phone Unavailable Care Team Providers Care Operations Assistant Name Role Phone Melissa Hodges PCP Reason for Referral * Diagnostic Imaging (Routine) Referred By Contact Referred To Contact Status Reason Specialty Diagnoses / [place] [address] [place] [address] Closed Diagnoses Hyperlipidemia, unspecified hyperlipidemia type P rocedures Electrocardiogram (ECG) Reason for Visit * Reason Comments Hyperlipidemia Hypertension Establish Care Encounter Details Care Team Description [place] [address] [place], [place] [id number] Hyperlipidemia, unspecified hyperlipidem ia type (Primary Dx); Essential hypertension 02/27/2018 Office Visit [facility] [address] [place] [address] Social History Date Tobacco Use Types Packs/Day Years Used Never Smoker Smokeless Tobacco: Never Used Drinks/Week oz/Week Comments Alcohol Use No Sex Assigned at Date Recorded Not on file Industry Job Start Date Occupation Not on file Not on file Not on file Travel End Travel History Travel Start No recent travel history available. documented as of this encounter Last Filed Vital Signs Reading Time Taken Comments Vital Sign 150/90 02/27/2018 1:41 PM CDT Blood Pressure 79 02/27/2018 1:27 PM CDT Pulse - - Temperature - - Respiratory Rate - - Oxygen Saturation - - Inhaled Oxygen Concentration 72.8 kg (160 lb 6.4 oz) 02/27/2018 1:27 PM CDT Weight 162.6 cm (5' 4") 02/27/2018 1:27 PM CDT Height 27.53 02/27/2018 1:27 PM CDT Body Mass Index documented in this encounter Patient Instructions * Patient Instructions* Roxie Moon RN - 02/27/2018 1:15 PM CDT Your doctor has ordered the following test(s): Lab work to be done in two weeks. This is to check how you are doing on the new medication. A nurse will contact you with the results and your doctor's recommendations approximately 7-10 busine days after the test has been completed. Medication Instructions: Start taking hydrochlorthiazide 12.5mg daily. This will help to lower your blood pressure. Your blood pressure goal is consistenly lower than 130/80. Please have your recent lab work, specifically your cholesterol levels, faxed to [phone]. Follow up with MD Dr. Fred Comer in 8 weeks. Please call the Nurse Line at [phone] ([facility] Nurse Team). with any questions or concerns. For medication refill needs, please first contact your pharmacy. For any [facility] scheduling questions, please maddy mason . At [facility], high quality patient care is our top priority. To ensure our cardiovascular standards are continuously met, you may receive a survey via giuliano il or text message, and we ask that you please take the time to fill it out. We strive to ensure you are very satisfied with every visit. Thank you in advance for taking the time to fill this out. It was a pleasure to meet you. Roxie RN documented in this encounter Progress Notes * Fred Comer MD - 02/27/2018 1:15 PM CDT [facility] Appointment Date: 02/27/2018 Melissa Hodges APRN [address] [place] [id number] RE: Tiesha Braswell : 1945 Visit provider: Fred Comer MD Dear Melissa Hodges APRN, I had the pleasure of seeing Tiesha Braswell in the office today. She is a(n) 72 y.o. female and presents with the following chief complaint(s): Hyperlipidemia; Hype rtension; and Establish Care HPI: Tiesha is seen today in self-referral. I have been offered the privilege of suzy schneider in our [place] office. Tiesha carries the following cardiac issues: 1. Hypertension. 2. Hyperlipidemia (historically which has not required treatment). She denies knowledge of smoking or diabetes. While she has a family history of heart disease, it does not appear to be on a premature basis. She has been seen at the [facility] in the past for noncardiac issues. At one point, she carried a diagnosis of pulmonary sarcoidosis. Apparently, this is no t something which is active and requires treatment. Surgical history as listed includes a hysterectomy and cholecystectomy. Her medications include amlodipine 5 mg and Micardis 80 mg. A home diary was pr ovided. Traditionally, it would appear that the blood pressure is slightly elev ated overall in reference to our latest standards. From a subjective standpoint, however, Tiesha appears to be doing well. While sh elle is not involved in any formal regular exercise program, she denies issues of d yspnea, chest pain, nocturnal dyspnea, palpitations, edema, or dizziness. On exam, blood pressure was repeated at 150/90. Her examination is otherwise no rmal. Her EKG reflects a sinus mechanism with a relative delay in precordial R- wave progression. In summary, Tiesha presents to establish care. She has hypertension. There may well be a component of office hypertension, but I believe overall the trend woul d favor additional intervention. In this particular setting, I would like to try low-dose hydrochlorothiazide. S he had mentioned some issues with the sun in the past, but I think a trial of 12 .5 mg would be indicated and likely well tolerated. I would like a basic metabo lic profile in 2 weeks. We do know that from a diagnostic standpoint, a recent calcium scoring study ret urned a value of zero on 02/15/2018. Tiesha will provide all recent laboratory studies to us, specifically with her li pids. At the present time, I see no need for cardiac diagnostics. Again, we are quite pleased with the recent calcium scoring study. Tiesha has agreed to return to see us in 8 weeks and hopefully at that time, we c an have a discussion in reference to her lipid profile and potentially calculate a 10-year risk of atherosclerotic disease. Patient Active Problem List Diagnosis SNOMED CT(R) Sarcoidosis SARCOIDOSIS Otalgia of right ear OTALGIA OF RIGHT EAR Essential hypertension ESSENTIAL HYPERTENSION Mixed hyperlipidemia MIXED HYPERLIPIDEMIA GERD (gastroesophageal reflux disease) GASTROESOPHAGEAL REFLUX DISEASE Osteopenia OSTEOPENIA Thyroid nodule THYROID NODULE Cataract CATARACT Colon polyp POLYP OF COLON Past Medical History: Diagnosis Date Cataract Colon polyp Essential hypertension GERD (gastroesophageal reflux disease) Mixed hyperlipidemia Osteopenia Otalgia of right ear 01/05/2018 Sarcoidosis 01/05/2018 Seasonal allergies Thyroid nodule Past Surgical History: Procedure Laterality Date BREAST BIOPSY Left 03/09/2010 CHOLECYSTECTOMY 1996 DILATION AND CURETTAGE OF UTERUS 1973 TOTAL VAGINAL HYSTERECTOMY 02/28/2012 w/anterior colporrhaphy and posterior colpoperineorrhaphy Final Medications: Current Outpatient Prescriptions Medication Sig Dispense Refill amLODIPine (NORVASC) 5 MG tablet Take 5 mg by mouth daily. cycloSPORINE (RESTASIS) 0.05 % ophthalmic emulsion Administer 1 Drop in both eyes daily. telmisartan (MICARDIS) 80 MG tablet hydroCHLOROthiazide (HYDRODIURIL) 12.5 MG tablet Take 1 tablet (12.5 mg tota l) by mouth every morning. 90 tablet 3 No current facility-administered medications for this visit. Allergies Allergen Reactions Penicillins Hives Family History Problem Relation Age of Onset Arthritis Mother Diabetes Mother Hyperlipidemia Mother Hypertension Mother Hypertension Father Hypertension Sister Melanoma Brother Stroke Maternal Grandfather Breast cancer Paternal Aunt Seizures Son Social History Substance Use Topics Smoking status: Never Smoker Smokeless tobacco: Never Used Alcohol use No Review of Systems Constitution: Negative for fever, malaise/fatigue and night sweats. HENT: Negative for nosebleeds. Cardiovascular: Negative for chest pain, claudication, cyanosis, dyspnea on exer tion, irregular heartbeat, leg swelling, near-syncope, orthopnea, palpitations, paroxysmal nocturnal dyspnea and syncope. Respiratory: Positive for snoring. Negative for cough, hemoptysis, shortness of breath, sleep disturbances due to breathing and wheezing. Endocrine: Negative for cold intolerance and polydipsia. Hematologic/Lymphatic: Does not bruise/bleed easily. Skin: Negative for rash. Musculoskeletal: Positive for joint pain. Negative for arthritis and myalgias. Gastrointestinal: Negative for dysphagia, hematochezia, nausea and vomiting. Genitourinary: Negative for hematuria. Neurological: Negative for brief paralysis, disturbances in coordination, excess jacque daytime sleepiness, dizziness, focal weakness, light-headedness, loss of bal ance, numbness and paresthesias. All other systems reviewed and are negative. Vital Signs 02/27/18 1327 02/27/18 1341 BP: (!) 150/91 (!) 150/90 Pulse: 79 Weight: 72.8 kg (160 lb 6.4 oz) Height: 1.626 m (5' 4") BMI: Body mass index is 27.53 kg/m. Physical Exam Constitutional: She is oriented to person, place, and time. She appears well-dev eloped and well-nourished. HENT: Head: Normocephalic and atraumatic. Eyes: Conjunctivae and EOM are normal. Neck: Neck supple. Carotid bruit is not present. Cardiovascular: Normal rate, regular rhythm, S1 normal, S2 normal, normal heart sounds and intact distal pulses. Pulses: Posterior tibial pulses are 2+ on the right side, and 2+ on the left side. Pulmonary/Chest: Effort normal and breath sounds normal. Abdominal: Soft. Bowel sounds are normal. Musculoskeletal: Normal range of motion. She exhibits no edema. Neurological: She is alert and oriented to person, place, and time. Skin: Skin is warm and dry. EKG: SR w delayed precordial R wave progression Encounter Diagnoses Name Primary? Hyperlipidemia, unspecified hyperlipidemia type Yes Essential hypertension Impression: 1. Hypertension: I have obtained a reading of 150/90 today and suggested low-d ose hydrochlorothiazide in addition to the current regimen which she is utilizin g. 2. Dyslipidemia: Apparently, a total cholesterol of 250 is a reasonable figure with supposedly an elevated HDL. Plan: 1. Add hydrochlorothiazide 12.5 mg daily. 2. Basic metabolic profile in 2 weeks. 3. Repeat clinical visit in 8 weeks. 4. Hopefully, in the interim, I will have had a chance to review her lipids and all past and recent laboratory studies. Treatment goals, progress and next steps, as above, were discussed and mutually agreed upon with the patient/family. Thank you for allowing me to participate in Tiesha Braswell's care. If I can be of a ny further assistance, please do not hesitate to contact me. Sincerely, Fred Comer MD /lb documented in this encounter Plan of Treatment Not on filedocumented as of this encounter Procedures Comments Procedure Name Priority Date/Time Associated Diag nosis BASIC METABOLIC PANEL Routine 03/31/2018 [facility] hypertension ECG Routine 02/27/2018 Hyperlipidemia, 1:17 PM CDT unspecified hyperlipidemia type documented in this encounter Results * Basic Metabolic Panel (03/31/2018) Calcium 9.5 8.5 - 10.8 mg/dL [facility] Glucose 95 60 - 125 mg/dL [facility] Blood Urea 17 9 - 27 mg/dL [facility] Nitrogen Potassium 3.9 3.5 - 5.5 mmol/L [facility] Sodium 141 132 - 145 mmol/L [facility] Chloride 104 95 - 110 mmol/L [facility] Creatinine 0.7 0.6 - 1.5 mg/dL [facility] Carbon Dioxide 30 24 - 34 mmol/L [facility] BUN/Creatinine 23.9 (A) 12 - 20 [facility] Ratio eGFR If 86 60 [facility] NonAfricn Am Specimen Blood Narrative Performed At This result has an attachment that is n ot available. Performing Organization Address City/State/[facility] one Number [address] [place], [place] [address] * Electrocardiogram (ECG) (02/27/2018 1:17 PM CDT) QRSd 70 [facility] QT 372 [facility] QTC 427 [facility] ECGHR 79 [facility] ECGPR 164 [facility] Specimen Narrative Performed At [facility] [place] Test Date: 2018-02-27 Pat Name: TIESHA BRASWELL Department: [facility] Room: Gender: Female [employer] Agent: [id number] : 1945 Requested By: FRED COMER Order Number: [id number] Reading MD: Fred Comer Measurements Intervals [place] Rate: 79 P: -67 [place]: 164 QRS: 11 QRSD: 70 T: 3 QT: 372 QTc: 427 Interpretive Statements Normal Sinus Rhythm Delayed precordial R wave progression Electronically Signed On 02-28-2018 12:3 3:15 CDT by Fred Comer Procedure Note Interface, External Ris In - 02/28/2018 12:33 PM CDT [facility] Test Date: 2018-02-27 Pat Name: [facility] Department: [facility] Room: Gender: Female [employer] Agent: [id number] : 1945 Requested By: FRED COMER Order Number: [id number] Reading MD: Fred Comer Measurements Intervals [place] Rate: 79 P: -67 [place]: 164 QRS: 11 QRSD: 70 T: 3 QT: 372 QTc: 427 Interpretive Statements Normal Sinus Rhythm Delayed precordial R wave progression Electronically Signed On 02-28-2018 12:33:15 CDT by Fred Comer Performing Organization Address City/State/Zipcode Ph one Number [facility] documented in this encounter Visit Diagnoses Diagnosis Hyperlipidemia, unspecified hyperlipide olga type Essential hypertension Unspecified essential hypertension documented in this encounter
--- OUTSIDE RECORDS SUMMARY | 2019-06-20 08:53 | XMS REPORT | Encounter Summary ---
Author Author [facility] Organization [facility] Address Unknown Phone Unavailable Care Team Providers Care Yard Cleaner Name Role Phone Tatyana Grimm PCP Encounter Details Care Team Description Date Type Department Encounter for consultation 07/04/2017 Imaging [facility] e Appointment Location Social History Date Tobacco [...] Procedure Name Priority Date/Time Associated Diag nosis MRI OUTSIDE IMAGES FOR Routine 07/04/2017 Encount er for PACS 10:56 AM STRAIGHTENER consultation documented in this encounter Results * MRI Outside images for PACS (07/04/2017 10:56 AM STRAIGHTENER) Specimen Narrative Performed At This result has an attachment that is n ot available. Performing Organization Address City/State[facility] one Mehul PATELGAURAV documented in this encounter Visit Diagnoses Diagnosis Encounter for consultation documented in this encounter
--- OUTSIDE RECORDS SUMMARY | 2019-06-20 08:53 | XMS REPORT | Encounter Summary ---
Author Author [facility] Organization [facility] Address Unknown Phone Unavailable Care Team Providers Care Aids Social Worker Name Role Phone Tatyana Grimm PCP Encounter Details Care Team Description Date Type Department Encounter for consultation 07/04/2017 Imaging [facility] e Appointment Location Social History [...] 07/04/2017 Encounte r for PACS 10:55 AM JUNIOR ACCOUNT MANAGER consultation documented in this encounter Results * PRASAD Outside images for PACS (07/04/2017 10:55 AM JUNIOR ACCOUNT MANAGER) Specimen Narrative Performed At This result has an attachment that is n ot available. Performing Organization Address City/State[facility] Ph one Mehul PHAM documented in this encounter Visit Diagnoses Diagnosis Encounter for consultation documented in this encounter
--- OUTSIDE RECORDS SUMMARY | 2019-06-20 08:53 | XMS REPORT | Encounter Summary ---
Author Author [facility] Organization [facility] Address Unknown Phone Unavailable Care Team Providers Care Testing Machine Operator Name Role Phone Tatyana Grimm PCP Encounter Details Care Team Description [place] [address] [facility] [address] [place] [address] [phone] 02/10/2018 Documentation [facility] [address] [place] [address] Social History Date Tobacco Use Types Packs/Day Years Used Never Assessed Sex Assigned at Date Recorded Not on file Industry Job Start Date Occupation Not on file Not on file Not on file Travel End Travel History Travel Start No recent travel history available. documented as of this encounter Plan of Treatment Not on filedocumented as of this encounter Visit Diagnoses Not on filedocumented in this encounter
--- OUTSIDE RECORDS SUMMARY | 2019-06-20 08:53 | XMS REPORT | Encounter Summary ---
Author Author [facility] Organization [facility] Address Unknown Phone Unavailable Care Team Providers Care Certified Novell Engineer Name Role Phone Melissa Hodges PCP Reason for Visit * Reason Comments Lab results Encounter Details Care Team Description Date Type Department Roslyn Vizcarra RN Lab results 04/03/2018 Telephone [facility] [address] [place], [place] [address] Social History Date Tobacco Use Types Packs/Day Years Used Never Smoker Smokeless Tobacco: Never Used Drinks/Week oz/Week Comments Alcohol Use No Sex Assigned at Date Recorded Not on file Industry Job Start Date Occupation Not on file Not on file Not on file Travel End Travel History Travel Start No recent travel history available. documented as of this encounter Miscellaneous Notes * Telephone Encounter - Roslyn Vizcarra RN - 04/03/2018 4:38 PM CDT Letter to PCP and pt. Has upcoming appt with MARIO. * Telephone Encounter - Roslyn Vizcarra RN - 04/03/2018 4:37 PM CDT ----- Message from Maxx Tong MD sent at 03/31/2018 2:06 PM CDT ----- Continue current regimen and plan. No action needed at this time. Recent addn of lo dose HCTZ documented in this encounter Plan of Treatment Not on filedocumented as of this encounter Visit Diagnoses Not on filedocumented in this encounter
--- OUTSIDE RECORDS SUMMARY | 2019-06-20 08:53 | XMS REPORT | Encounter Summary ---
Author Author [facility] Organization [facility] Address Unknown Phone Unavailable Care Team Providers Care Fig Bar Machine Operator Name Role Phone Tatyana Grimm PCP Reason for Referral * Diagnostic Imaging (Routine) Referred By Contact Referred To Contact Status Reason Specialty Diagnoses / [place] [address] [place] [address] Closed Diagnoses Abnormal mammogram P rocedures US Breast limited left Reason for Visit * Diagnostic Imaging (Routine) Referred By Contact Referred To Contact Status Reason Specialty Diagnoses / [place] [address] [place] [address] Closed Diagnoses Abnormal mammogram P rocedures US Breast limited left Encounter Details Care Team Description Date [place] [address] [place] [address] Abnormal mammogram 07/07/2017 [facility] [address] [place] [address] Social History Date Tobacco Use Types Packs/Day [...] Name Priority Date/Time Associated Diag nosis US BREAST LIMITED LEFT Routine 07/07/2017 Abnorma l mammogram 11:19 AM CREATIVE/ART DIRECTOR documented in this encounter Results * US Breast limited left (07/07/2017 11:19 AM CREATIVE/ART DIRECTOR) Specimen Impressions Performed At [facility] [...] BI-RADS CATEGORY 2: Benign Finding(s) READING SITE: [facility] Etta Medina Electronically Signed: at 12:28:16 PM Your patient will receive the results o f this examination as outlined by the Mammography Quality Standards Act. Tiesha Braswell, [id number] 1945 2 Page 2li Narrative Performed At [facility] [address], [address] [place] [address] Patient: Tiesha Braswell Date of : 1945 Referring Physician: Tatyana Medina er Exam Date: 07/07/2017 Exam [id number] Procedure Performed: MA Mammogram diagn ostic w [...] IMAGE COMPARISON Prior imaging studies performed at [facility] on 11/19/2008, 03/03/2010, 03/09/2010, 01/15/2014 and 01/16/2014 [...] Rad Results In - 07/07/2017 12:31 PM [facility] [address], [address] [place], [place] [id number] Patient: Tiesha Braswell Date of : 1945 Referring Physician: Tatyana Grimm Exam Date: 07/07/2017 Exam [id number] Procedure Performed: MA Mammogram diagnostic w CAD [...] IMAGE COMPARISON Prior imaging studies performed at [facility] on 11/19/2008, 03/03/2010, 03/09/2010, 01/15/2014 and 01/16/2014 [...] BI-RADS CATEGORY 2: Benign Finding(s) READING SITE: [facility] Etta Medina Electronically Signed: 07/07/2017 at 12:28:16 PM Your patient will receive the results of this examination as outlined by the Mammography Quality Standards Act. Tiesha Braswell, [id number] 1945 2 Page 2li Performing Organization Address City/State/Zipcode Ph one Number ANKIT documented in this encounter Visit Diagnoses Diagnosis Abnormal mammogram Abnormal mammogram, unspecified documented in this encounter
--- OUTSIDE RECORDS SUMMARY | 2019-06-20 08:53 | XMS REPORT | Encounter Summary ---
Author Author [facility] Organization [facility] Address Unknown Phone Unavailable Care Team Providers Care Apple Picking Supervisor Name Role Phone Melissa Hodges PCP Reason for Referral * Diagnostic Imaging (Routine) Referred By Contact Referred To Contact Status Reason Specialty Diagnoses / Procedures Melissa Hodges APRN [address] [place] [id number] [facility] Mammo [facility] [address], [address] [place] [address] Closed Radiology Diagnoses Screening breast examination(not mammogram) P rocedures MA Mammogram screening w CAD bilat Encounter Details Care Team Description Date Type Department Melissa Hodges APRN [address] [place] [id number] Screening breast examination (Primary Dx ) 02/20/2019 Transcribe [facility] al Orders [id number] [facility] [address] [place], [place] [phone] Social History Date Tobacco Use Types Packs/Day [...] filedocumented as of this encounter Results * MA Mammogram screening w CAD bilat (02/21/2019 12:13 PM CDT) Specimen Impressions Performed At [facility] No mammographic evidence of malignancy. Routine mammogram in 1 year is recommen ded. Patient will receive a reminder letter. BI-RADS CATEGORY 1: Negative READING SITE: [facility] gunner Washburn M.D. Electronically Sig jonas: 02/21/2019 at 12:38:59 PM Your patient will receive the results o f this examination as outlined by the Mammography Quality Standards Act. Tiesha Braswell, [id number] 1945 1 Page 1li Narrative Performed At [facility] [address], [address] [place] [address] Patient: Tiesha Braswell Date of : 1945 Referring Physician: Melissa irene Exam Date: 02/21/2019 Exam Procedure Performed: MA Mammogram scree anne w CAD kiera bilat - bilateral REASON FOR EXAM Patient is 73 years old and is seen for screening. The following views were obtained: bi lateral CC; bilateral MLO; bilateral CC KIERA; and bilateral MLO KIERA. IMAGE COMPARISON The present examination has been compar ed to prior imaging studies performed at [facility] on 01/15/2014 and 4, and at [facility] on 07/07/2017. DIGITAL MAMMOGRAM CAD-analysis was used in the interpreta tion of this study. The breasts are extremely dense, which lowers the sensitivity of mammography. There are no suspicious masses, areas o f architectural distortion or malignant appearing calcifications identified. Procedure Note Interface, Rad Results In - 02/21/2019 12:42 PM CDT [facility] [address], [address] [place] [address] Patient: Tiesha Braswell Date of : 1945 Referring Physician: Melissa Hodges Exam Date: 02/21/2019 Exam Procedure Performed: MA Mammogram screening w CAD kiera bilat - bilateral REASON FOR EXAM Patient is 73 years old and is seen for screening. The following views were obtained: bilateral CC; bilateral MLO; bilateral CC KIERA; and bilateral MLO KIERA. IMAGE COMPARISON The present examination has been compared to prior imaging studies performed at [facility] on 01/15/2014 and 01/16/2014, and at [facility] on 07/07/2017. DIGITAL MAMMOGRAM CAD-analysis was used in the interpretation of this study. The breasts are extremely dense, which lowers the sensitivity of mammography. There are no suspicious masses, areas of architectural distortion or malignant appearing calcifications identified. IMPRESSION IMPRESSION No mammographic evidence of malignancy. Routine mammogram in 1 year is recommended. Patient will receive a reminder letter. BI-RADS CATEGORY 1: Negative READING SITE: [facility] Klaudia Washburn M.D. Electronically Signed: 02/21/2019 at 12:38:59 PM Your patient will receive the results of this examination as outlined by the Mammography Quality Standards Act. Tiesha Braswell, [id number] 1945 1 Page 1li Performing Organization Address City/State/Zipcode Ph one Number ADRIANESHARITASON documented in this encounter Visit Diagnoses Diagnosis Screening breast examination(not mammog [place]) Other screening breast examination documented in this encounter
--- OUTSIDE RECORDS SUMMARY | 2019-06-20 08:53 | XMS REPORT | Encounter Summary ---
Author Author [facility] Organization [facility] Address Unknown Phone Unavailable Care Team Providers Care Garment Tag Stringer Name Role Phone Tatyana Grimm PCP Encounter Details Care Team Description Date Type Department Encounter for consultation 07/01/2017 Imaging [facility] Virtual [facility] e Appointment Location Social History Date [...] Diag rosalio PARHAM OUTSIDE IMAGES FOR Routine 07/01/2017 Encounte r for PACS 10:14 AM COMMERCIAL CENTER MANAGER consultation documented in this encounter Results * PRASAD Outside images for PACS (07/01/2017 10:14 AM COMMERCIAL CENTER MANAGER) Specimen Narrative Performed At This result has an attachment that is n ot available. Performing Organization Address City/State/[facility] Ph one Number ANKIT documented in this encounter Visit Diagnoses Diagnosis Encounter for consultation documented in this encounter
--- OUTSIDE RECORDS SUMMARY | 2019-06-20 08:53 | XMS REPORT | Encounter Summary ---
Author Author [facility] Address Unknown Phone Unavailable Care Team Providers Care Transportation Design Engineer Name Role Phone Melissa Hodges PCP Reason for Referral * Diagnostic Imaging (Routine) Referred By Contact Referred To Contact Status Reason Specialty Diagnoses / Procedures Melissa Hodges, KATELYNN [address] [place] [address] [facility] Mammo [place] [address], [address] [place] [address] Closed Radiology Diagnoses Screening breast examination(not mammogram) P madeleine PARHAM Mammogram screening w CAD bilat Reason for Visit * Diagnostic Imaging (Routine) Referred By Contact Referred To Contact Status Reason Specialty Diagnoses / Procedures Melissa Hodges, KATELYNN [address] [place] [address] [facility] Mammo [place] [address], [address] [place] [address] Closed Radiology Diagnoses Screening breast examination(not mammogram) P rocedures MA Mammogram screening w CAD bilat Encounter Details Care Team Description Date Type Department Melissa Hodges APRN [address] [place] [address] [id number] Screening breast examination 02/21/2019 [facility] [address], [address] [place] [address] Social History Date Tobacco Use Types Packs/Day [...] Date End Date Medication Sig Dispensed Refills 02/06/2018 amLODIPine (NORVASC) 5 MG Take 5 mg by 0 tablet mouth daily. 06/25/2017 cycloSPORINE (RESTASIS) Administer 1 0 0.05 % ophthalmic Drop in both emulsion eyes daily. 02/27/2018 hydroCHLOROthiazide Take 1 tablet 90 tablet 3 (HYDRODIURIL) 12.5 MG (12.5 mg tablet total) by mouth every morning. 02/06/2018 telmisartan (MICARDIS) 80 0 MG tablet documented as of this encounter Plan of Treatment Not on filedocumented as of this encounter Procedures Comments Procedure Name Priority Date/Time Associated Diag nosis MA MAMMOGRAM SCREENING W Routine 02/21/2019 Scree anne breast CAD KIERA BILAT 12:13 PM CDT examination documented in this encounter Results * MA Mammogram screening w CAD bilat (02/21/2019 12:13 PM CDT) Specimen Impressions Performed At [facility] No mammographic evidence of malignancy. Routine mammogram in 1 year is recommen ded. Patient will receive a reminder letter. BI-RADS CATEGORY 1: Negative READING SITE: [facility] gunner Washburn M.D. Electronically Sig jonas: 02/21/2019 at 12:38:59 PM Your patient will receive the results o f this examination as outlined by the Mammography Quality Standards Act. Tiesha Braswell, [id number] 1945 1 Page 1li Narrative Performed At [facility] [address], [address] [place], [place] [id number] Patient: Tiesha Braswell Date of : 1945 Referring Physician: Melissa irene Exam Date: 02/21/2019 Exam Procedure Performed: MA Mammogram kailey rodríguez w CAD kiera bilat - bilateral REASON FOR EXAM Patient is 73 years old and is seen for screening. The following views were obtained: bi lateral CC; bilateral MLO; bilateral CC KIERA; and bilateral MLO KIERA. IMAGE COMPARISON The present examination has been compar ed to prior imaging studies performed at [facility] on 01/15/2014 and 4, and at [facility] on 07/07/2017. DIGITAL MAMMOGRAM CAD-analysis was used in the interpreta tion of this study. The breasts are extremely dense, which lowers the sensitivity of mammography. There are no suspicious masses, areas o f architectural distortion or malignant appearing calcifications identified. Procedure Note Interface, Rad Results In - 02/21/2019 12:[address] [facility] [id number] [place] [address], [address] [place], [place] [address] Patient: Tiesha Braswell Date of : 1945 [...] compared to prior imaging studies performed at [facility] on 01/15/2014 and 01/16/2014, and at [facility] on 07/07/2017. DIGITAL MAMMOGRAM CAD-analysis was [...] letter. BI-RADS CATEGORY 1: Negative READING SITE: [facility] Klaudia Washburn M.D. Electronically Signed: 02/21/2019 at 12:38:59 PM Your patient will receive the results of this examination as outlined by the Mammography Quality Standards Act. Tiesha Braswell, [id number] 1945 1 Page 1li Performing Organization Address City/State/Zipcode Ph one Number ADRIANEELICIA documented in this encounter Visit Diagnoses Diagnosis Screening breast examination(not mammog [place]) Other screening breast examination documented in this encounter
--- OUTSIDE RECORDS SUMMARY | 2019-06-20 08:53 | XMS REPORT | Encounter Summary ---
Author Author [facility] Organization [facility] Address Unknown Phone Unavailable Care Team Providers Care Commutator Undercutter Name Role Phone Melissa Hodges PCP Reason for Referral * Diagnostic Imaging (Routine) Referred By Contact Referred To Contact Status Reason Specialty Diagnoses / Procedures Tatyana Grimm MD [address] [place] [address] Closed Diagnoses Abnormal mammogram P rocedures US Breast limited left Encounter Details Care Team Description Date Type Department Tatyana Grimm MD [address] [place] [address] Abnormal mammogram (Primary Dx) 06/27/[place] [address] Social History Date Tobacco Use Types Packs/Day Years Used Never Assessed Sex Assigned at Date Recorded Not on file Industry Job Start Date Occupation Not on file Not on file Not on file Travel End Travel History Travel Start No recent travel history available. documented as of this encounter Plan of Treatment Not on filedocumented as of this encounter Results * US Breast limited left (07/07/2017 11:19 AM COSTUME MISTRESS) Specimen Impressions Performed At [facility] There is no mammographic or sonographic evidence [...] CATEGORY 2: Benign Finding(s) READING SITE: [facility] Etta Medina Electronically Signed: at 12:28:16 PM Your patient will receive the results o f this examination as outlined by the Mammography Quality Standards Act. Tiesha Braswell, [id number] 1945 2 Page 2li Narrative Performed At [facility] [address], [address] [place], [place] [id number] Patient: Tiesha Braswell Date of : 1945 Referring Physician: Tatyana Medina er Exam Date: 07/07/2017 Exam [id number] Procedure Performed: MA Mammogram diagn ostic w [...] IMAGE COMPARISON Prior imaging studies performed at [facility] on 11/19/2008, 03/03/2010, 03/09/2010, 01/15/2014 and [...] Rad Results In - 07/07/2017 12:31 PM [facility] [address], [address] [place] [address] Patient: Tiesha Braswell Date of : 1945 Referring Physician: Tatyana Grimm Exam Date: 07/07/2017 Exam [id number] Procedure Performed: MA Mammogram diagnostic w CAD [...] IMAGE COMPARISON Prior imaging studies performed at [facility] on 11/19/2008, 03/03/2010, 03/09/2010, 01/15/2014 and [...] BI-RADS CATEGORY 2: Benign Finding(s) READING SITE: [facility] Etta Medina Electronically Signed: 07/07/2017 at 12:28:16 PM Your patient will receive the results of this examination as outlined by the Mammography Quality Standards Act. Tiesha Braswell, [id number] 1945 2 Page 2li Performing Organization Address City/State/Zipcode Ph one Number ANKIT documented in this encounter Visit Diagnoses Diagnosis Abnormal mammogram Abnormal mammogram, unspecified documented in this encounter
--- OUTSIDE RECORDS SUMMARY | 2019-06-20 08:53 | XMS REPORT | Encounter Summary ---
Author Author [facility] Organization [facility] Address Unknown Phone Unavailable Care Team Providers Care Housemaid Name Role Phone Tatyana Grimm PCP Encounter Details Care Team Description Date Type Department Encounter for consultation 07/04/[address] [facility] Virtual [facility] e Appointment Location Social History Date [...] 07/04/2017 Encounte r for PACS 10:55 AM MANAGEMENT TRAINEE PROGRAM STORES consultation documented in this encounter Results * PRASAD Outside images for PACS (07/04/2017 10:55 AM MANAGEMENT TRAINEE PROGRAM STORES) Specimen Narrative Performed At This result has an attachment that is n ot available. Performing Organization Address City/State/[facility] Ph one Mehul PHAM documented in this encounter Visit Diagnoses Diagnosis Encounter for consultation documented in this encounter
--- OUTSIDE RECORDS SUMMARY | 2019-06-20 08:53 | XMS REPORT | Encounter Summary ---
Author Author [facility] Organization [facility] Address Unknown Phone Unavailable Care Team Providers Care Heater Room Helper Name Role Phone Tatyana Grimm PCP Encounter Details Care Team Description Date Type Department Encounter for consultation 07/04/2017 Imaging [facility] Virtual [facility] e Appointment Location Social History [...] FOR Routine 07/04/2017 Encounte r for PACS 10:56 AM ENTREPRENEURIAL FINANCE PROFESSOR consultation documented in this encounter Results * PRASAD Outside images for PACS (07/04/2017 10:56 AM ENTREPRENEURIAL FINANCE PROFESSOR) Specimen Narrative Performed At This result has an attachment that is n ot available. Performing Organization Address City/State/[facility] Ph one Mehul PHAM documented in this encounter Visit Diagnoses Diagnosis Encounter for consultation documented in this encounter
--- OUTSIDE RECORDS SUMMARY | 2019-06-20 08:53 | XMS REPORT | Encounter Summary ---
Author Author [facility] Organization [facility] Address Unknown Phone Unavailable Care Team Providers Care Clinical Courier Name Role Phone Tatyana Grimm PCP Encounter Details Care Team Description Date Type Department Marta Calvillo RN 02/21/2018 Abstract [facility] [address] [facility] [address] [place], [place] [address] Social History Date Tobacco Use Types Packs/Day [...] Procedure Name Priority Date/Time Associated Diag nosis CT CHEST WO CONTRAST Routine 01/06/2018 documented in this encounter Results * CT Chest wo contrast (01/06/2018) Pathologist [facility] RIS CONTRAST TYPE Specimen Impressions Performed At Predominantly perilymphatic micronodula r opacities are again identified bilaterally, most pronounced within the right upper lobe and along the right minor fissure. Compared to the prior [facility] of 04/22/2011, these may be minimally improved. Two discrete pulmonary nodule s demonstrate increased/new calcification within the left lung (series 2, images 98 and 120). Scattered probable parenchymal scarring. Bilateral low-den sity thyroid nodules are stable. Slight interval increase in calcification within mediastinal lymph nodes. No significant mediastinal or hilar lymph node enlargement. Splenule. Cholecystectomy. Left adrenal adenoma. ([place]) documented in this encounter Visit Diagnoses Diagnosis Essential hypertension Unspecified essential hypertension Mixed hyperlipidemia Thyroid nodule Nontoxic uninodular goiter documented in this encounter
--- OUTSIDE RECORDS SUMMARY | 2019-06-20 08:53 | XMS REPORT | Clinical Summary ---
Author Author [facility] Organization [facility] Address Unknown Phone Unavailable Care Team Providers Care Supervisor Asphalt Paving Name Role Phone Melissa Hodges PCP Allergies Comments Active Allergy Reactions Severity Noted Date Penicillins Hives 02/04/2009 Medications End Date Status Medication Sig Dispensed Refills Start Date Active cycloSPORINE (RESTASIS) Administer 1 0 0.05 % ophthalmic Drop in both 8 emulsion eyes daily. Active telmisartan (MICARDIS) 80 0 /20/201 MG tablet 8 Active amLODIPine (NORVASC) 5 MG Take 5 mg by 0 / 0/201 tablet mouth daily. 8 Active hydroCHLOROthiazide Take 1 tablet 90 tablet 3 02/18 0201 (HYDRODIURIL) 12.5 MG (12.5 mg 8 tablet total) by mouth every morning. Active Problems Problem Noted Date Sarcoidosis 01/05/2018 Otalgia of right ear 01/05/2018 Essential hypertension Mixed hyperlipidemia GERD (gastroesophageal reflux disease) Osteopenia Thyroid nodule Cataract Colon polyp Family History Medical History Relation Name Comments Melanoma Brother Hypertension Father Stroke Maternal Grandfather Arthritis Mother Diabetes Mother Hyperlipidemia Mother Hypertension Mother Breast cancer Paternal Aunt Hypertension Sister Seizures Son Relation Name Status Comments Brother Father Maternal Grandfather Mother Paternal Aunt Sister Son Social History Date Tobacco Use Types Packs/Day Years Used Never Smoker Smokeless Tobacco: Never Used Drinks/Week oz/Week Comments Alcohol Use No Sex Assigned at Date Recorded Not on file Industry Job Start Date Occupation Not on file Not on file Not on file Travel End Travel History Travel Start No recent travel history available. Last Filed Vital Signs Reading Time Taken [...] 02/27/2018 1:27 PM CDT Body Mass Index Plan of Treatment Health Maintenance Due Date Last Done Comments Hepatitis C Screen 1945 Medicare Annual Wellness 1945 Td # 1945 Osteoporosis Screening 1945 Colorectal Screening via 1996 Colonoscopy Zoster Vaccine# (1 of 2) 1996 Depression Screening 2011 PHQ-9 # Fall Risk Assessment # 2011 Pneumococcal Vaccine: 65+ 2011 Years (1 of 2 - PCV13) Influenza Vaccine (#1) 2019 03/20/2008 Mammogram Screening 02/21/2021 02/21/2019, 07/07/2017 Results Not on filefrom Last 3 Months Insurance Type Payer Benefit Subscriber ID Effective Phone Address Plan / Dates Group Medicare MEDICARE MEDICARE xxxxxxxxxxx 2011-P [place] PART A B resent [facility] OUT OF xxxxxxxxxxxx [id number] [facility] resent [facility] Advance Directives For more information, please contact: [phone] Patient Gallery Director Explanation Type Date Recorded Advance Directives and Living Will Power of Regulator Inspector Health Care Directive
--- OUTSIDE RECORDS SUMMARY | 2019-06-20 08:54 | XMS REPORT | Continuity of Care Document ---
Author Organization Unknown Address Unknown Phone Unavailable Allergies Active Description Code Type Severity Reaction Onset Reported/Identified Relationship to Patient Clinical Status Yes Penicillins [id number] Drug Aller gy Unknown N/A 05/04/2019 Medications There is no data. Problems Date Dx Coded Attending Type Code Diagnosis Diagnosed By 01/29/2016 ADELSO CAMPBELL DOQUELINE S Ot M54.5 LOW BACK PAIN 02/18/2016 GLORIANDYAHIR PENALOZA CEDRICK S Ot M54.5 LOW BACK PAIN 02/26/2016 GLORIANDER DO, CEDRICK S Ot M54.5 LOW BACK PAIN 06/27/2017 ORENDER DO CEDRICK S Ot J40 BRONCHITIS, NOT SPECIFIED ACUTE OR CH 06/30/2017 ORENDER DO, CEDRICK S Ot J40 BRONCHITIS, NOT SPECIFIED ACUTE OR CH 11/11/2017 ORENDER DO CEDRICK S Ot M54.5 LOW BACK PAIN 11/11/2017 ORENDER DO, CEDRICK S Ot J40 BRONCHITIS, NOT SPECIFIED ACUTE OR CH 11/14/2017 ARSEN, CHRISTY R MANAGER LOCATION Ot J32.0 CHRONIC MAXILLARY SINUSITIS 11/14/2017 ARSEN, CHRISTY R MANAGER LOCATION Ot 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 11/14/2017 ARSEN, CHRISTY R MANAGER LOCATION Ot J32.8 OTHER CHRONIC SINUSITIS 11/14/2017 ARSEN, CHRISTY R MANAGER LOCATION Ot J34.2 DEVIATED NASAL SEPTUM 12/02/2017 ARSEN, CHRISTY R MANAGER LOCATION Ot J32.0 CHRONIC MAXILLARY SINUSITIS 12/02/2017 ARSEN, CHRISTY R MANAGER LOCATION Ot 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 12/02/2017 ARSEN, CHRISTY R MANAGER LOCATION Ot J32.8 OTHER CHRONIC SINUSITIS 12/02/2017 ARSEN, CHRISTY R MANAGER LOCATION Ot J34.2 DEVIATED NASAL SEPTUM 12/07/2017 ARSEN, CHRISTY R MANAGER LOCATION Ot J32.0 CHRONIC MAXILLARY SINUSITIS 12/07/2017 MARBELLA LEGERYSON R MANAGER LOCATION Ot 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 12/07/2017 CHRISTY LEGER R MANAGER LOCATION Ot J32.8 OTHER CHRONIC SINUSITIS 12/07/2017 CHRISTY LEGER R MANAGER LOCATION Ot J34.2 DEVIATED NASAL SEPTUM 12/28/2017 CHRISTINE CHILD MD Ot E04.2 NONTOXIC MULTINODULAR GOITER 12/28/2017 CHRISTINE CHILD MD Ot 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 12/28/2017 CHRISTINE CHILD MD Ot M48.0 2 SPINAL STENOSIS, CERVICAL REGION 12/28/2017 CHRISTINE CHILD MD Ot M50.2 22 OTHER CERVICAL DISC DISPLACEMENT AT C5-C 12/28/2017 CHRISTINE CHILD MD Ot M50.3 22 OTHER CERVICAL DISC DEGENERATION AT C5-C 12/28/2017 CHRISTINE CHILD MD Ot 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 12/28/2017 CEDRICK CAMPBELL DO Ot D86.9 SARCOIDOSIS, UNSPECIFIED 01/17/2018 CHRISTINE CHILD MD Ot E04.2 NONTOXIC MULTINODULAR GOITER 01/17/2018 CHRISTINE CHILD MD Ot 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 01/17/2018 CHRISTINE CHILD MD Ot M48.0 2 SPINAL STENOSIS, CERVICAL REGION 01/17/2018 CHRISTINE CHILD MD Ot M50.2 22 OTHER CERVICAL DISC DISPLACEMENT AT C5-C 01/17/2018 CHRISTINE CHILD MD Ot M50.3 22 OTHER CERVICAL DISC DEGENERATION AT C5-C 01/17/2018 CHRISTINE CHILD MD Ot 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 09/13/2018 CEDRICK CAMPBELL DO Ot M54.5 LOW BACK PAIN 09/13/2018 CEDRICK CAMPBELL DO Ot J40 BRONCHITIS, NOT SPECIFIED ACUTE OR CH 09/13/2018 CHRISTY LEGER R MANAGER LOCATION Ot J32.0 CHRONIC MAXILLARY SINUSITIS 09/13/2018 CHRISTY LEGER R MANAGER LOCATION Ot 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 09/13/2018 EDILMA LEGERON R MANAGER LOCATION Ot J32.8 OTHER CHRONIC SINUSITIS 09/13/2018 EDILMA LEGERON R MANAGER LOCATION Ot J34.2 DEVIATED NASAL SEPTUM 09/13/2018 CHRISTINE CHILD MD Ot E04.2 NONTOXIC MULTINODULAR GOITER 09/13/2018 CHRISTINE CHILD MD Ot 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 09/13/2018 CHRISTINE CHILD MD Ot M48.0 2 SPINAL STENOSIS, CERVICAL REGION 09/13/2018 CHRISTINE CHILD MD Ot M50.2 22 OTHER CERVICAL DISC DISPLACEMENT AT C5-C 09/13/2018 CHRISTINE CHILD MD Ot M50.3 22 OTHER CERVICAL DISC DEGENERATION AT C5-C 09/13/2018 CHRISTINE CHILD MD Ot 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 09/13/2018 CEDRICK CAMPBELL DO S Ot D86.9 SARCOIDOSIS, UNSPECIFIED 09/13/2018 CHRISTY LEGER R MANAGER LOCATION Ot E04.2 NONTOXIC MULTINODULAR GOITER 09/13/2018 CHRISTY LEGER R MANAGER LOCATION Ot M54.5 LOW BACK PAIN 09/13/2018 EDILMA LEGERON R MANAGER LOCATION Ot R59.0 LOCALIZED ENLARGED LYMPH NODES 09/13/2018 CEDRICK CAMPBELL DO S Ot M54.5 LOW BACK PAIN 09/13/2018 CEDRICK CAMPBELL DO S Ot J40 BRONCHITIS, NOT SPECIFIED ACUTE OR CH 09/13/2018 CHRISTY LEGER R MANAGER LOCATION Ot J32.0 CHRONIC MAXILLARY SINUSITIS 09/13/2018 CHRISTY LEGER R MANAGER LOCATION Ot 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 09/13/2018 EDILMA LEGERON R MANAGER LOCATION Ot J32.8 OTHER CHRONIC SINUSITIS 09/13/2018 CHRISTY LEGER R MANAGER LOCATION Ot J34.2 DEVIATED NASAL SEPTUM 09/13/2018 CHRISTINE CHILD MD Ot E04.2 NONTOXIC MULTINODULAR GOITER 09/13/2018 CHRISTINE CHILD MD Ot 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 09/13/2018 CHRISTINE CHILD MD Ot M48.0 2 SPINAL STENOSIS, CERVICAL REGION 09/13/2018 CHRISTINE CHILD MD Ot M50.2 22 OTHER CERVICAL DISC DISPLACEMENT AT C5-C 09/13/2018 CHRISTINE CHILD MD Ot M50.3 22 OTHER CERVICAL DISC DEGENERATION AT C5-C 09/13/2018 CHRISTINE CHILD MD Ot 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 09/13/2018 GLORIANDER DO, CEDRICK S Ot D86.9 SARCOIDOSIS, UNSPECIFIED 09/13/2018 CHRISTY LEGER R MANAGER LOCATION Ot E04.2 NONTOXIC MULTINODULAR GOITER 09/13/2018 EDILMA LEGERON R MANAGER LOCATION Ot M54.5 LOW BACK PAIN 09/13/2018 CHRISTY LEGER R MANAGER LOCATION Ot R59.0 LOCALIZED ENLARGED LYMPH NODES 09/14/2018 ORENDER DO, CEDRICK S Ot E04.2 NONTOXIC MULTINODULAR GOITER 09/14/2018 ORENDER DO, CEDRICK S Ot R94.5 ABNORMAL RESULTS OF LIVER FUNCTION STUDI 09/14/2018 ORENDER DO, CEDRICK S Ot Z90.49 ACQUIRED ABSENCE OF OTHER SPECIFIED PART 09/20/2018 ORENDER DO, CEDRICK S Ot E04.2 NONTOXIC MULTINODULAR GOITER 09/20/2018 ORENDER DO, CEDRICK S Ot R94.5 ABNORMAL RESULTS OF LIVER FUNCTION STUDI 09/20/2018 ORENDER DO, CEDRICK S Ot Z90.49 ACQUIRED ABSENCE OF OTHER SPECIFIED PART 10/04/2018 ORENDER DO, CEDRICK S Ot E04.2 NONTOXIC MULTINODULAR GOITER 10/04/2018 ORENDER DO, CEDRICK S Ot R94.5 ABNORMAL RESULTS OF LIVER FUNCTION STUDI 10/04/2018 ORENDER DO, CEDRICK S Ot Z90.49 ACQUIRED ABSENCE OF OTHER SPECIFIED PART 10/11/2018 ORENDER DO, CEDRICK S Ot E04.2 NONTOXIC MULTINODULAR GOITER 10/11/2018 ORENDER DO, CEDRICK S Ot R94.5 ABNORMAL RESULTS OF LIVER FUNCTION STUDI 10/11/2018 ORENDER DO, CEDRICK S Ot Z90.49 ACQUIRED ABSENCE OF OTHER SPECIFIED PART 03/22/2019 CHOWDARY, LEONARDO L OPERATIONS CLERK Ot E04.2 NONTOXIC MULTINODULAR GOITER 03/29/2019 CHOWDARY, LEONARDO L OPERATIONS CLERK Ot E04.2 NONTOXIC MULTINODULAR GOITER 05/04/2019 RAJENDRA JIMENEZ MD Ot E78.00 PURE HYPERCHOLESTEROLEMIA, UNSPECIFIED 05/04/2019 RAJENDRA JIMENEZ MD Ot H25.12 AGE-RELATED NUCLEAR CATARACT, LEFT EYE 05/04/2019 RAJENDRA JIMENEZ MD Ot I10 ESSENTIAL (PRIMARY) HYPERTENSION 05/04/2019 RAJENDRA JIMENEZ MD Ot Z79.899 OTHER BEREAVEMENT PROGRAM COORDINATOR (CURRENT) DRUG THERAPY 05/04/2019 RAJENDRA JIMENEZ MD Ot Z83 .3 FAMILY HISTORY OF DIABETES MELLITUS 05/04/2019 RAJENDRA JIMENEZ MD Ot Z83.518 FAMILY HISTORY OF OTHER SPECIFIED EYE DI 05/04/2019 RAJENDRA JIMENEZ MD Ot Z88 .0 ALLERGY STATUS TO PENICILLIN 05/04/2019 RAJENDRA JIMENEZ MD Ot Z90.49 ACQUIRED ABSENCE OF OTHER SPECIFIED PART 05/04/2019 RAJENDRA JIMENEZ MD Ot Z90.710 ACQUIRED ABSENCE OF BOTH CERVIX AND UTER 05/08/2019 RAJENDRA JIMENEZ MD Ot E78.00 PURE HYPERCHOLESTEROLEMIA, UNSPECIFIED 05/08/2019 RAJENDRA JIMENEZ MD Ot H25.12 AGE-RELATED NUCLEAR CATARACT, LEFT EYE 05/08/2019 RAJENDRA JIMENEZ MD Ot I10 ESSENTIAL (PRIMARY) HYPERTENSION 05/08/2019 RAJENDRA JIMENEZ MD Ot Z79.899 OTHER BEREAVEMENT PROGRAM COORDINATOR (CURRENT) DRUG THERAPY 05/08/2019 RAJENDRA JIMENEZ MD Ot Z83 .3 FAMILY HISTORY OF DIABETES MELLITUS 05/08/2019 RAJENDRA JIMENEZ MD Ot Z83.518 FAMILY HISTORY OF OTHER SPECIFIED EYE DI 05/08/2019 RAJENDRA JIMENEZ MD Ot Z88 .0 ALLERGY STATUS TO PENICILLIN 05/08/2019 RAJENDRA JIMENEZ MD Ot Z90.49 ACQUIRED ABSENCE OF OTHER SPECIFIED PART 05/08/2019 RAJENDRA JIMENEZ MD Ot Z90.710 ACQUIRED ABSENCE OF BOTH CERVIX AND UTER 05/10/2019 RAJENDRA JIMENEZ MD Ot E78.00 PURE HYPERCHOLESTEROLEMIA, UNSPECIFIED 05/10/2019 RAJENDRA JIMENZE MD, Ot H25.12 AGE-RELATED NUCLEAR CATARACT, LEFT EYE 05/10/2019 RAJENDRA JIMENEZ MD Ot I10 ESSENTIAL (PRIMARY) HYPERTENSION 05/10/2019 RAJENDRA JIMENEZ MD, Ot Z79.899 OTHER BEREAVEMENT PROGRAM COORDINATOR (CURRENT) DRUG THERAPY 05/10/2019 RAJENDRA JIMENEZ MD, Ot Z83 .3 FAMILY HISTORY OF DIABETES MELLITUS 05/10/2019 RAJENDRA JIMENEZ MD, Ot Z83.518 FAMILY HISTORY OF OTHER SPECIFIED EYE DI 05/10/2019 RAJENDRA JIMENEZ MD Ot Z88 .0 ALLERGY STATUS TO PENICILLIN 05/10/2019 RAJENDRA JIMENEZ MD Ot Z90.49 ACQUIRED ABSENCE OF OTHER SPECIFIED PART 05/10/2019 RAJENDRA JIMENEZ MD Ot Z90.710 ACQUIRED ABSENCE OF BOTH CERVIX AND UTER 05/23/2019 RAJENDRA JIMENEZ MD Ot Z01.818 ENCOUNTER FOR OTHER PREPROCEDURAL EXAMIN 05/25/2019 RAJENDRA JIMENEZ MD Ot D86 .9 SARCOIDOSIS, UNSPECIFIED 05/25/2019 RAJENDRA JIMENEZ MD Ot E78.00 PURE HYPERCHOLESTEROLEMIA, UNSPECIFIED 05/25/2019 RAJENDRA JIMENEZ MD Ot H25.11 AGE-RELATED NUCLEAR CATARACT, RIGHT EYE 05/25/2019 RAJENDRA JIMENEZ MD Ot I10 ESSENTIAL (PRIMARY) HYPERTENSION 05/25/2019 RAJENDRA JIMENEZ MD, Ot Z79.899 OTHER BEREAVEMENT PROGRAM COORDINATOR (CURRENT) DRUG THERAPY 05/25/2019 RAJENDRA JIMENEZ MD, Ot Z83 .3 FAMILY HISTORY OF DIABETES MELLITUS 05/25/2019 RAJENDRA JIMENEZ MD Ot Z83.518 FAMILY HISTORY OF OTHER SPECIFIED EYE DI 05/25/2019 RAJENDRA JIMENEZ MD Ot Z88 .0 ALLERGY STATUS TO PENICILLIN 05/25/2019 RAJENDRA JIMENEZ MD Ot Z90.49 ACQUIRED ABSENCE OF OTHER SPECIFIED PART 05/25/2019 RAJENDRA JIMENEZ MD Ot Z90.710 ACQUIRED ABSENCE OF BOTH CERVIX AND UTER Procedures There is no data. Results There is no data. Encounters ACCT No. Visit Date/Time Discharge Status Pt. Type Provider Facility Loc./Unit Complaint 06/28/16 11/24/2018 00:16:45 11/24/2018 23:5 9:59 CLS Outpatient [id number] 05/25/2019 07:29:00 09:10:00 DIS Outpatient RAJENDRA JIMENEZ MD [facility] CATARACT RIGHT EYE [id number] 05/23/2019 05:38:00 13:13:00 DIS Outpatient RAJENDRA JIMENEZ MD [facility] PREOP CATARACT LEFT EYE [id number] 05/04/2019 06:51:00 23:59:59 CLS Outpatient RAJENDRA JIMENEZ MD [facility] CATARACT LEFT EYE [id number] 04/11/2019 15:59:00 16:06:00 DIS Outpatient RAJENDRA JIMENEZ MD [facility] PREOP CATARACT LEFT EYE [id number] 02/26/2019 07:49:00 23:59:59 CLS Outpatient LEONARDO CHOWDARY [facility] RAD THYROID NODULE [id number] 11/27/2018 11:43:00 23:59:59 CLS Preadmit ORENDER DO CEDRICK S [facility] RAD THYROID NODULE [id number] 09/14/2018 08:00:00 019 23:59:59 CLS Outpatient ORENDER DO CEDRICK S [facility] RAD ELEVATED LIVER ENZYME [id number] 09/05/2018 09:05:00 019 23:59:59 CLS Preadmit ORENDER DO CEDRICK S [facility] RAD THYROID NODULES [id number] 12/30/2017 08:12:00 018 23:59:59 CLS Outpatient CHRISTY LEGER APRN [facility] RAD THYROID NODULE [id number] 12/27/2017 07:30:00 23:59:59 CLS Outpatient GLORIANDER DO CEDRICK S [facility] RAD D86.9 [id number] 12/27/2017 07:27:00 018 23:59:59 CLS Outpatient CHRISTINE CHILD MD [facility] RAD HEADACHES,PAIN [id number] 12/22/2017 09:59:00 018 23:59:59 CLS Preadmit CHRISTINE CHILD MD, V [facility] RAD HEADACHES,NECK PAIN [id number] 11/11/2017 14:18:00 018 23:59:59 CLS Outpatient CHRISTY LEGER MANAGER LOCATION [facility] RAD CHRONIC SINUSIT IS [id number] 11/10/2017 14:06:00 018 23:59:59 CLS Preadmit CHRISTY LEGER MANAGER LOCATION [facility] CHRONIC SINUSIT IS [id number] 06/03/2017 14:31:00 017 23:59:59 CLS Outpatient CEDRICK CAMPBELL DO [facility] RAD R05 [id number] 01/28/2016 13:08:00 016 23:59:59 CLS Outpatient CEDRICK CAMPBELL DO [facility] RAD LOW BACK PAIN [id number] 09/21/2014 10:14:00 015 23:59:59 CLS Outpatient BEBO AUSTIN [facility] QUICK
== END 2019-05-25 09:10 | disposition home or self-care (01) ==
LOC: SDC 07:29
PROVIDERS: ATTEND Specialist
DX: H25.11 Age-related nuclear cataract, right eye (principal); I10 Essential (primary) hypertension; E78.00 Pure hypercholesterolemia, unspecified; D86.9 Sarcoidosis, unspecified; Z90.710 Acquired absence of both cervix and uterus; Z88.0 Allergy status to penicillin; Z90.49 Acquired absence of other specified parts of digestive tract; Z79.899 Other long term (current) drug therapy; Z83.518 Family history of other specified eye disorder; Z83.3 Family history of diabetes mellitus

== ENCOUNTER → 2021-06-04 | Outpatient (CLI) | payer MEDICARE ==
--- NOTE | 2021-06-04 09:48 | Diagnostic Imaging Report ---
EXAMINATION: US Thyroid. TECHNIQUE: Multiple real-time grayscale images were obtained of the thyroid in various projections. HISTORY: ELEVATED LIVER ENZYMES,THYROMEGALY COMPARISON: 02/26/2019 FINDINGS: The right lobe of the thyroid measures 4.9 x 1.7 x 1.7 cm. Stable 1.5 cm solid, mildly hypoechoic, wider than tall nodule with smooth margins. There is a 0.7 cm solid nodule along the posterior margin of the thyroid gland which may represent a parathyroid gland. The left lobe of the thyroid measures 5.9 x 1.3 x 1.2 cm. There is a 0.6 cm solid, hypoechoic, wider than tall nodule with smooth margins, unchanged. The isthmus is normal and measures 0.3 cm. No suspicious adenopathy within the visualized neck. IMPRESSION: 1. Stable bilateral thyroid nodules measuring up to 1.5 cm on the right, TI-RADS 4. This larger lesion on the right does meet criteria for fine-needle aspiration. TIRADS 1: Benign No FNA or follow-up required TIRADS 2: Not Suspicious No FNA or follow-up required TIRADS 3: Mildly Suspicious FNA if ? 2.5 cm Follow if ? 1.5 cm (At 1, 3 and 5 years from initial scan) TIRADS 4: Moderately Suspicious FNA if ? 1.5 cm Follow if ? 1 cm (At 1, 2, 3 and 5 years from initial scan) TIRADS 5: Highly Suspicious FNA if ? 1 cm Follow if ? 0.5 cm (Annually for 5 years from initial scan) Dictated by: Dictated on workstation # [id number]
--- NOTE | 2021-06-04 09:53 | Diagnostic Imaging Report ---
CLINICAL INDICATION: Patient with elevated liver enzymes. EXAM: Right upper quadrant ultrasound. COMPARISON: Right upper quadrant ultrasound dated 09/14/2018. FINDINGS: Overlying bowel gas obscures portions of the pancreatic tail. Otherwise, the pancreatic tail is unremarkable as visualized. The visualized portions of the abdominal aorta and IVC are unremarkable. The liver has normal echogenicity and echotexture. The liver surface is smooth. There is no liver mass. The liver measures 14.1 cm. The main portal vein demonstrates hepatopetal flow. There is no intrahepatic or extrahepatic ductal dilation. Common bile duct is within normal limits at 8 mm postcholecystectomy. There is no gross abnormality in the visualized gallbladder fossa region. The right kidney is unremarkable with no hydronephrosis or mass. The right kidney measures 9.2 cm in craniocaudal dimension. There is no abdominal ascites. IMPRESSION: Cholecystectomy. Otherwise, unremarkable right upper quadrant ultrasound as visualized. Dictated by: Dictated on workstation # [id number]
== END ==
LOC: RAD 08:15
PROVIDERS: ATTEND Nurse Practitioner Family
DX: E04.2 Nontoxic multinodular goiter (principal); R74.8 Abnormal levels of other serum enzymes; Z90.49 Acquired absence of other specified parts of digestive tract
CPT/HCPCS: 76536; 76705

== ENCOUNTER 2021-10-26 07:27 | Emergency (ER) | payer MEDICARE ==
[~2021-10-26] VITALS: Ht 162 cm; Wt 73.0 kg
[2021-10-26] MEDS ORDERED: APIXABAN 5 MG (ELIQUIS) TABLET PO ONE (07:45)
[2021-10-26] MEDS ORDERED: NS IV 500 ML 500 ML IV ONE (07:45)
[2021-10-26] MEDS ORDERED: ASPIRIN 81 MG CHEW (CHILDREN'S ASA) PO ONE (07:45)
--- NOTE | 2021-10-26 07:51 | ED Cardiac General ---
History of Present Illness General Chief Complaint: Cardiac/General Problems Stated Complaint: IRRATIC HEART RATE Nursing Triage Note: PT STATES FEELING LIKE SHE HAS PALPATATIONS THAT STARTED THIS AM. HOT FLASHES AND A LITTLE SOB. DAD AND BROTHER HAVE A-FIB AND PT IN A-FIB ON EKG AT TRIAGE. Source: patient, family (duc), spouse Exam Limitations: no limitations History of Present Illness Date Seen by Provider: October 26, 2021 Time Seen by Provider: 07:32 Initial Comments Patient presents ER by private conveyance with her daughter and chief complaint that starting about 20 to 30 minutes prior to arrival she started having some hot flashes, shortness of breath with exertion, irregular rapid heart rate. She says her dad and brother have atrial fibrillation. She is not having any chest pain or pain anywhere. She is not having any nausea. No fevers or chills. No coronary disease. She follows with Dr. Hodges for primary care. She is not on a blood thinner. She saw Dr. Judge, cardiology in [place] in the past for routine. She has a history of hypertension and hyperlipidemia but no diabetes, smoking or early onset coronary disease. Allergies and Home Medications Allergies Coded Allergies: Penicillins (Unverified Allergy, Unknown, 05/04/19) Patient Home Medication List Home Medication List Reviewed: Yes Hydrochlorothiazide (Hydrochlorothiazide) 12.5 Mg Tablet, 12.5 MG PO DAILY, (Reported) Entered as Reported by: MARKELL CABAN on 04/11/19 1601 Telmisartan (Telmisartan) 80 Mg Tablet, 80 MG PO DAILY, (Reported) Entered as Reported by: MARKELL CABAN on 04/11/19 1601 Review of Systems Review of Systems Constitutional: No chills, No diaphoresis EENTM: No Blurred Vision, No Double Vision Respiratory: Denies Cough; Shortness of Air, SOA With Exertion Cardiovascular: Denies Chest Pain, Denies Edema; Irregular Heart Rate; Denies Lightheadedness; Palpitations Gastrointestinal: Denies Abdominal Pain, Denies Constipated, Denies Diarrhea Genitourinary: Denies Burning, Denies Discharge Musculoskeletal: No back pain, No joint pain All Other Systems Reviewed Negative Unless Noted: Yes Past Diohxko-Txmavh-Khpyak Hx Patient Social History Tobacco Use?: No Use of E-Cig and/or Vaping dev: No Substance use?: No Alcohol Use?: No Past Medical History Surgery/Hospitalization HX: HYSTERECTOMY, GALLBLADDER Physical Exam Vital Signs Vital Signs - First Documented 10/26/21 07:33 Temp 36.6 Pulse 149 Resp 20 B/P (MAP) 186/117 (140) Pulse Ox 96 O2 Delivery Room Air Capillary Refill : Less Than 3 Seconds Height, Weight, BMI Height: '" Weight: lbs. oz. kg; 27.00 BMI Method:Stated General Appearance: WD/WN, Anxious, Mild Distress HEENT: PERRL/EOMI, Pharynx Normal, Moist Mucous Membranes Neck: Full Range of Motion, Normal Inspection Respiratory: Lungs Clear, Normal Breath Sounds, No Accessory Muscle Use, No Respiratory Distress Cardiovascular: No Edema, Irregularly Irregular, Tachycardia (140s) Gastrointestinal: Normal Bowel Sounds, No Organomegaly Extremity: Normal Inspection, No Pedal Edema Neurologic/Psychiatric: Alert, Oriented x3 Skin: Normal Color, Warm/Dry Progress/Results/Core Measures Results/Orders Lab Results Laboratory Tests Test 10/26/21 07:40 10/26/21 08:40 Range/Units White Blood Count 7.9 4.3-11.0 10^3/uL Red Blood Count 5.12 H 3.80-5.11 10^6/uL Hemoglobin 15.5 11.5-16.0 g/dL Hematocrit 47 35-52 % Mean Corpuscular Volume 91 80-99 fL Mean Corpuscular Hemoglobin 30 25-34 pg Mean Corpuscular Hemoglobin Concent 33 32-36 g/dL Red Cell Distribution Width 13.7 10.0-14.5 % Platelet Count 218 130-400 10^3/uL Mean Platelet Volume 8.8 L 9.0-12.2 fL Immature Granulocyte % (Auto) 0 % Neutrophils (%) (Auto) 59 42-75 % Lymphocytes (%) (Auto) 32 12-44 % Monocytes (%) (Auto) 7 0-12 % Eosinophils (%) (Auto) 1 0-10 % Basophils (%) (Auto) 1 0-10 % Neutrophils # (Auto) 4.6 1.8-7.8 10^3/uL Lymphocytes # (Auto) 2.5 1.0-4.0 10^3/uL Monocytes # (Auto) 0.6 0.0-1.0 10^3/uL Eosinophils # (Auto) 0.1 0.0-0.3 10^3/uL Basophils # (Auto) 0.1 0.0-0.1 10^3/uL Immature Granulocyte # (Auto) 0.0 0.0-0.1 10^3/uL Sodium Level 142 135-145 MMOL/L Potassium Level 5.2 H 3.6-5.0 MMOL/L Chloride Level 104 98-107 MMOL/L Carbon Dioxide Level 24 21-32 MMOL/L Anion Gap 14 5-14 MMOL/L Blood Urea Nitrogen 20 H 7-18 MG/DL Creatinine 0.81 0.60-1.30 MG/DL Estimat Glomerular Filtration Rate 76 BUN/Creatinine Ratio 25 Glucose Level 101 70-105 MG/DL Calcium Level 9.8 8.5-10.1 MG/DL Corrected Calcium 8.5-10.1 MG/DL Magnesium Level 2.1 1.6-2.4 MG/DL Total Bilirubin 0.7 0.1-1.0 MG/DL Aspartate Amino Transf (AST/SGOT) 61 H 5-34 U/L Alanine Aminotransferase (ALT/SGPT) 103 H 0-55 U/L Alkaline Phosphatase 113 40-136 U/L Troponin I < 0.028 <0.028 NG/ML Total Protein 8.5 H 6.4-8.2 GM/DL Albumin 4.7 H 3.2-4.5 GM/DL Thyroid Stimulating Hormone (TSH) 1.10 0.35-4.94 UIU/ML Urine Color YELLOW Urine Clarity CLEAR Urine pH 7.0 5-9 Urine Specific Butler <=1.005 1.016-1.022 Urine Protein NEGATIVE NEGATIVE Urine Glucose (UA) NEGATIVE NEGATIVE Urine Ketones NEGATIVE NEGATIVE Urine Nitrite NEGATIVE NEGATIVE Urine Bilirubin NEGATIVE NEGATIVE Urine Urobilinogen 0.2 < = 1.0 MG/DL Urine Leukocyte Esterase NEGATIVE NEGATIVE Urine RBC (Auto) TRACE-I H NEGATIVE Urine RBC RARE /HPF Urine WBC NONE /HPF Urine Squamous Epithelial Cells RARE /HPF Urine Crystals NONE /LPF Urine Bacteria NEGATIVE /HPF Urine Casts NONE /LPF Urine Mucus NEGATIVE /LPF Urine Culture Indicated NO My Orders Orders - DUY BRAVO Ekg Tracing (10/26/21 07:32) Cbc With Automated Diff (10/26/21 07:43) Comprehensive Metabolic Panel (10/26/21 07:43) Chest 1 View, Ap/Pa Only (10/26/21 07:43) Troponin I Cynthia (10/26/21 07:43) Magnesium (10/26/21 07:43) Apixaban Tablet (Eliquis Tablet) (10/26/21 07:45) Diltiazem Injection (Cardizem Injection) (10/26/21 07:45) Aspirin Chewable Tablet (Baby Aspirin Ch (10/26/21 07:45) Ed Iv/Invasive Line Start (10/26/21 07:43) Ns Iv 500 Ml (Sodium Chloride 0.9%) (10/26/21 07:45) Thyroid Stimulating Hormone (10/26/21 07:43) Diltiazem Drip Pre-Mix (Cardizem Drip Pr (10/26/21 08:45) Ua Culture If Indicated (10/26/21 08:42) Diltiazem Cd 24 Hr Capsule (Cardizem Cd (10/27/21 09:00) Medications Given in ED Current Medications Medications Dose Ordered Sig/Oleg Route Start Time Stop Time Status Last Admin Dose Admin Apixaban 5 mg ONCE ONCE PO 10/26/21 07:45 10/26/21 07:47 DC 10/26/21 07:51 5 MG Aspirin 324 mg ONCE ONCE PO 10/26/21 07:45 10/26/21 07:47 DC 10/26/21 07:51 324 MG Diltiazem HCl 20 mg ONCE ONCE IVP 10/26/21 07:45 10/26/21 07:47 DC 10/26/21 07:51 20 MG Sodium Chloride 500 ml @ 0 mls/hr Q0M ONCE IV 10/26/21 07:45 10/26/21 07:47 DC 10/26/21 08:01 1,000 MLS/HR Vital Signs/I&O 10/26/21 07:33 Temp 36.6 Pulse 149 Resp 20 B/P (MAP) 186/117 (140) Pulse Ox 96 O2 Delivery Room Air Blood Pressure Mean: 140 Progress Progress Note : Time: 07:49 Progress Note Patient appears to be in atrial fibrillation with rapid ventricular response on the EKG. Plan to give her 20 mg of Cardizem based on her significant elevated blood pressure of 200/116. We will check some labs and give her some aspirin. We did discuss risks, benefits and alternatives to blood thinners and rate control and will initiate Eliquis. Initial ECG Impression Date: October 26, 2021 Initial ECG Impression Time: 07:35 Initial ECG Rate: 149 Initial ECG Rhythm: A Fib/Flutter Initial ECG Intervals: QT (356) Initial ECG Impression: Atrial Fibrillation w/RVR Initial ECG Comparisson: No Previous ECG Available Comment Atrial fibrillation with rapid ventricular response. Diagnostic Imaging Diagonstic Imaging: Xray Plain Films/CT/US/NM/MRI: chest Comments [facility] [place], [place] NAME: KATELIN MERCHANT [facility] REC#: [id number] PT STATUS: REG ER : 1945 PHYSICIAN: DUY BRAVO MD ADMIT DATE: 10/26/21/ER Draft Date of Exam:10/26/21 CHEST 1 VIEW, AP/PA ONLY INDICATION: Hot flashes, dyspnea and palpitation. AP view of chest is obtained with comparison made study of 12/27/2017 FINDINGS: Heart size and pulmonary vascularity are within normal limits, and the lungs are clear, bilaterally. IMPRESSION: Unremarkable chest. Dictated on workstation # [id number] Dict: 10/26/21 0834 Trans: 10/26/21 0835 [id number] Interpreted by: SHAQ SHIN MD Electronically signed by: Reviewed: Reviewed by Me Consults : Consulting Physician: DIMITRIOS ROSAS JR, MD Consults Notes Discussed the case and if she is able to come off the Cardizem drip and maintaining good rate and start the Eliquis and give 120 mg CD Cardizem he is okay with letting her follow-up with her waxer outpatient Departure Impression Primary Impression: Atrial fibrillation with rapid ventricular response Disposition: HOME, SELF-CARE Condition: Stable Departure-Patient Inst. Decision time for Depature: 09:14 Referrals: SARAY HODGES DO (PCP) Primary Care Physician LEONARDO HODGES, RANDY (Family) Primary Care Physician DIMITRIOS ROSAS JR, MD Patient Instructions: Medicines for Atrial Fibrillation, Atrial Fibrillation (DC) Add. Discharge Instructions: Cardizem CD 120 mg daily. Make a follow-up appointment with your primary waxer in the next 2 to 4 weeks. Return to the ER for chest pain, shortness of air. If you get into a racing, irregular heart rate again you may take a second dose of Cardizem and if that does not resolve the situation in an hour then return to the nearest ER for management. Eliquis is a blood thinner that will help prevent the formation of blood clots due to atrial fibrillation that can go into the bloodstream and cause strokes. Eliquis 5 mg twice a day. All discharge instructions reviewed with patient and/or family. Voiced understanding. Scripts Apixaban (Eliquis) 5 Mg Tablet 5 MG PO BID for 14 Days, #30 TAB 0 Refills Prov: DUY BRAVO 10/26/21 Diltiazem HCl (Cardizem Cd) 120 Mg Cap.er.24h 120 MG PO DAILY for 14 Days, #14 CAP 0 Refills Prov: DUY BRAVO 10/26/21 Copy Copies To 1: SARAY HODGES DO DUY BRAVO October 26, 2021 07:51
[2021-10-26 07:52] LABS: BASOPHILS # (AUTO) 0.1 10^3/uL (0.0-0.1); BASOPHILS % (AUTO) 1 % (0-10); EOSINOPHILS # (AUTO) 0.1 10^3/uL (0.0-0.3); EOSINOPHILS % (AUTO) 1 % (0-10); HEMATOCRIT 47 % (35-52); HEMOGLOBIN 15.5 g/dL (11.5-16.0); LYMPHOCYTES # (AUTO) 2.5 10^3/uL (1.0-4.0); LYMPHOCYTES % (AUTO) 32 % (12-44); MEAN CORPUSCULAR HEMOGLOBIN 30 pg (25-34); MEAN CORPUSCULAR HGB CONC 33 g/dL (32-36); MEAN CORPUSCULAR VOLUME 91 fL (80-99); MEAN PLATELET VOLUME 8.8 fL (9.0-12.2); MONOCYTES # (AUTO) 0.6 10^3/uL (0.0-1.0); MONOCYTES % (AUTO) 7 % (0-12); NEUTROPHILS # (AUTO) 4.6 10^3/uL (1.8-7.8); NEUTROPHILS % (AUTO) 59 % (42-75); PLATELET COUNT 218 10^3/uL (130-400); WHITE BLOOD COUNT 7.9 10^3/uL (4.3-11.0)
[2021-10-26 07:58] LABS: ALBUMIN 4.7 GM/DL (3.2-4.5); CHLORIDE 104 MMOL/L (98-107); POTASSIUM 5.2 MMOL/L (3.6-5.0); SODIUM 142 MMOL/L (135-145)
[2021-10-26 07:59] LABS: CALCIUM 9.8 MG/DL (8.5-10.1)
[2021-10-26 08:00] LABS: GLUCOSE 101 MG/DL (70-105); TOTAL PROTEIN 8.5 GM/DL (6.4-8.2)
[2021-10-26 08:02] LABS: BILIRUBIN,TOTAL 0.7 MG/DL (0.1-1.0); CARBON DIOXIDE 24 MMOL/L (21-32)
[2021-10-26 08:04] LABS: ALKALINE PHOSPHATASE 113 U/L (40-136); CREATININE SERUM 0.81 MG/DL (0.60-1.30); GFR ESTIMATED 76
[2021-10-26 08:05] LABS: BUN/CREATININE RATIO 25
[2021-10-26 08:07] LABS: ALANINE AMINOTRANSFERASE 103 U/L (0-55); MAGNESIUM 2.1 MG/DL (1.6-2.4)
--- NOTE | 2021-10-26 08:36 | Diagnostic Imaging Report ---
INDICATION: Hot flashes, dyspnea and palpitation. AP view of chest is obtained with comparison made study of 12/27/2017 FINDINGS: Heart size and pulmonary vascularity are within normal limits, and the lungs are clear, bilaterally. IMPRESSION: Unremarkable chest. Dictated by: Dictated on workstation # [id number]
[2021-10-26] MEDS ORDERED: dilTIAZem DRIP PRE-MIX 125 ML IV SCH (08:45)
[2021-10-26 08:53] LABS: BILIRUBIN,URINE NEGATIVE (NEGATIVE); CLARITY,URINE CLEAR; COLOR,URINE YELLOW; GLUCOSE, URINE (UA) NEGATIVE (NEGATIVE); KETONES,URINE NEGATIVE (NEGATIVE); LEUKOCYTE ESTERASE ,URINE NEGATIVE (NEGATIVE); NITRITE,URINE NEGATIVE (NEGATIVE); PROTEIN,URINE NEGATIVE (NEGATIVE)
[2021-10-26 09:03] LABS: BACTERIA,URINE NEGATIVE /HPF; RBC,URINE RARE /HPF; SQUAMOUS EPITHELIAL CELL,UR RARE /HPF
[2021-10-26] MEDS ORDERED: dilTIAZem120 MG (CARDIZEM CD) CAP PO ONE (09:20)
[2021-10-26] MEDS ORDERED: DILT120C82 PO (09:25)
[2021-10-26] MEDS ORDERED: APIX5TAB PO (09:25)
[2021-10-26 09:38] VITALS: BP 150/85
[2021-10-27] MEDS ORDERED: dilTIAZem120 MG (CARDIZEM CD) CAP PO SCH (09:00)
== END 2021-10-26 09:38 | disposition home or self-care (01) ==
LOC: EDUNIT# 07:27 → ER 07:29
DX: I48.91 Unspecified atrial fibrillation (principal); I10 Essential (primary) hypertension
CPT/HCPCS: 36415; 71045; 80053; 81000; 83735; 84443; 84484; 85025; 93005

== ENCOUNTER → 2021-11-11 | Outpatient (CLI) | payer MEDICARE ==
[~2021-11-11] MED LIST changes: +APIX5TAB PO; +DILT120C82 PO
== END ==
LOC: CARD 08:30
PROVIDERS: ATTEND Nurse Practitioner Family
DX: I51.7 Cardiomegaly (principal); I48.91 Unspecified atrial fibrillation; R03.0 Elevated blood-pressure reading, without diagnosis of hypertension
CPT/HCPCS: 93306

== ENCOUNTER → 2022-01-22 | Outpatient (CLI) | payer MEDICARE ==
--- NOTE | 2022-01-22 11:40 | Diagnostic Imaging Report ---
PROCEDURE: US Thyroid. TECHNIQUE: Multiple real-time grayscale images were obtained of the thyroid in various projections. INDICATION: Follow-up thyroid nodules. CORRELATION is made with prior ultrasound from 06/04/2021. FINDINGS: The right lobe of the thyroid measures 5.9 x 2.1 x 1.6 cm and the left lobe measures 5.0 x 1.3 x 1.5 cm. Isthmus is 2 mm in thickness. Multiple bilateral thyroid nodules are again noted. The largest nodule is on the right mid aspect measuring 1.4 x 0.7 x 1.1 cm, stable. A second nodule in the lower pole measures approximately 0.8 x 0.5 x 0.9 cm. This is posteriorly located and could potentially be parathyroid in origin. 5 mm nodules left lobe are noted. IMPRESSION: Bilateral thyroid nodules, stable when compared with prior study from 06/04/2021. Dictated by: Dictated on workstation # [id number]
== END ==
LOC: RAD 08:35
PROVIDERS: ATTEND Nurse Practitioner Family
DX: E04.2 Nontoxic multinodular goiter (principal)
CPT/HCPCS: 76536

== ENCOUNTER → 2022-04-22 | Outpatient (CLI) | payer MEDICARE ==
[~2022-04-22] MED LIST changes: +IOHEXOL 350 MG/ML 100 ML (OMNIPAQUE 350) VIAL IV ONE; +NS 100 ML (IVPB) BAG IV ONE
[2022-04-22 09:56] LABS: CREATININE SERUM 0.73 MG/DL (0.60-1.30)
--- NOTE | 2022-04-22 10:51 | Diagnostic Imaging Report ---
PROCEDURE: CT abdomen and pelvis with contrast. TECHNIQUE: Multiple contiguous axial images were obtained through the abdomen and pelvis after administration of intravenous contrast. Auto Exposure Controls were utilized during the CT exam to meet ALARA standards for radiation dose reduction. All CT scans use one or more of the following dose optimizing techniques: automated exposure control, MA and/or KvP adjustment based on patient size and exam type or iterative reconstruction. INDICATION: Fluid around the left kidney noted on outside ultrasound. Outside studies not available for comparison. FINDINGS: The lung bases are clear. The liver is unremarkable. Gallbladder surgically absent. No biliary ductal dilatation is seen. Pancreas and spleen are unremarkable. The right adrenal gland is unremarkable. There is a nodule in the left adrenal gland measuring 16 mm. This is low density and likely represents an adenoma. Kidneys are unremarkable apart from parapelvic cysts in the left kidney. No perinephric fluid is identified. There is no hydronephrosis. Aorta is nonaneurysmal. Bowel loops are normal caliber. There is diverticulosis of the sigmoid but no acute diverticulitis. There is no free fluid or fluid collection identified. Bladder is unremarkable. Bony structures are nonacute. IMPRESSION: 1. Probable left adrenal adenoma. 2. Uncomplicated diverticulosis. 3. No evidence of perinephric fluid collection. There are parapelvic cysts in the left kidney. No other significant abnormality is detected. Dictated by: Dictated on workstation # [id number]
== END ==
LOC: RAD 09:15
PROVIDERS: ATTEND Nurse Practitioner Family
DX: N28.1 Cyst of kidney, acquired (principal); N13.39 Other hydronephrosis; K57.90 Diverticulosis of intestine, part unspecified, without perforation or abscess without bleeding
CPT/HCPCS: 36415; 74177; 82565

== ENCOUNTER → 2022-12-13 | Outpatient (CLI) | payer MEDICARE ==
[~2022-12-13] MED LIST changes: -IOHEXOL 350 MG/ML 100 ML (OMNIPAQUE 350) VIAL IV ONE; -NS 100 ML (IVPB) BAG IV ONE
--- NOTE | 2022-12-13 11:54 | Diagnostic Imaging Report ---
PROCEDURE: CT sinuses without contrast TECHNIQUE: Multiple contiguous axial images were obtained through the sinuses without the use of intravenous contrast. Coronal and sagittal reformations were then performed. Auto Exposure Controls were utilized during the CT exam to meet ALARA standards for radiation dose reduction. INDICATION: Chronic sinusitis COMPARISON: 11/11/2017 FINDINGS: The frontal sinuses are clear. Frontoethmoidal recesses are clear. The ethmoid air cells are clear. The sphenoid sinuses are clear. The bilateral maxillary sinuses are clear besides very minimal mucosal thickening within the inferior right maxillary sinus. Mild leftward nasal septal deviation is again noted. Adele bullosa of the right middle turbinate. The bilateral ostiomeatal complexes are patent. No significant nasal spur. The lamina papyracea are intact. No acute facial fracture. No temporomandibular joint dislocation. The visualized parapharyngeal is symmetric and well-maintained. The muscles of mastication are unremarkable. Bilateral ocular lenses are absent. Retrobulbar fat is unremarkable. No significant intracranial midline shift or hydrocephalus within the [id number]. IMPRESSION: The paranasal sinuses are clear besides very minimal mucosal thickening within the inferior right maxillary sinus. Mild leftward deviation of the nasal septum, though the bilateral ostiomeatal complexes remain patent. Dictated by: Dictated on workstation # [id number]
== END ==
LOC: RAD 11:13
PROVIDERS: ATTEND Otolaryngology
DX: J34.2 Deviated nasal septum (principal); J32.9 Chronic sinusitis, unspecified
CPT/HCPCS: 70486